=== PATIENT | female | born 1960 | race Caucasian/White ===

== ENCOUNTER 2022-08-20 17:45 | Emergency (ER) | payer BC, SELFPAY ==
[2022-08-20 18:00] VITALS: BP 155/73; PULSE 77; RESP 16; TEMP 37.1; O2SAT 100
--- NOTE | 2022-08-20 18:40 | ED.BACK ---
HPI - Back Pain/Injury General Chief Complaint: Back Pain/Injury Stated Complaint: Right Side/Back Pain Time Seen by Provider: 08/20/22 18:40 Source: patient, RN notes reviewed and old records reviewed Mode of arrival: ambulatory Limitations: no limitations History of Present Illness HPI Narrative: 62-year-old female presents to the [facility] with complaints of right-sided back pain associated with nausea and vomiting. Patient states that she started with right-sided back pain and right upper quadrant pain 3 weeks ago. Patient ate a very simple diet and was drinking water states the pain got better returned 2 days ago. States that she has not been able to eat since the pain returns reports the pain to be right upper quadrant, radiating into her right flank area. Denies fevers. Has tried 1 ibuprofen. Denies any past medical or surgical history. Denies having a primary care provider. Review of Systems Review of Systems: All systems reviewed & are unremarkable except as noted in HPI and below Constitutional: Constitutional: Reports no additional constitutional complaints, Denies chills and Denies fever(s) Eyes: Eyes: Reports no additional eye complaints ENT: Reports system reviewed and no additional complaints, except as documented Cardiovascular: Cardiovascular: Reports no additional cardiovascular complaints Respiratory: Respiratory: Reports no additional respiratory complaints Gastrointestinal: Gastrointestinal: Reports as per HPI, Reports abdominal pain, Reports nausea and Reports vomiting Musculoskeletal: Musculoskeletal: Reports no additional musculoskeletal complaints Integumentary/Breasts: Skin/Breast: Reports system reviewed and no additional complaints, except as docu Neurologic: Reports system reviewed and no additional complaints, except as documented Psychiatric: Psychiatric: Reports no additional psychiatric complaints Allergic/Immunologic: Allergic/Immunologic: Reports no additional allergic/immunologic complaints [facility] Past Medical History Medical History (Updated 08/20/22 @ 19:00 by Olga Lidia Garcia APRN) Patient denies medical problems Surgical History Surgical History (Updated 08/20/22 @ 18:57 by Olga Lidia Garcia APRN) No pertinent past surgical history Social History Social History Smoking status: Never smoker Comments At the time of my signature, I reviewed and agree with the nursing past medical, surgical, social, and family history. There is no relevant family history pertinent to the patient complaint. Exam Const: General: healthy appearing, comfortable, no acute distress, well developed, alert and well nourished Nutritional Appearance: well nourished and obese Orientation/consciousness: patient oriented x3 Limitations: no limitations HENMT: Head: normal to inspection Ears: external ears normal Face/Nose/Sinus: Normal external nose present Face and sinus: normal facial exam Eyes: General: appearance normal, both eyes and all related structures Pupils: Equal, round and reactive pupils present Neck: Neck: normal visual inspection, full ROM, no lymphadenopathy and no meningeal signs Chest: Chest palpation & inspection: normal inspection of the chest Resp: Effort & Inspection: normal respiratory effort and no use of accessory muscles Auscultation: clear to auscultation bilaterally, no crackles, no rales, no rhonchi and no wheezes Cardio: Rate: regular rate Rhythm: regular rhythm GI: Inspection: normal to inspection GI Palp: Yes Soft to palpation, Yes Tenderness to palpation present (GI) (Right upper quadrant), No Guarding due to palpation present (GI), No Rigid due to palpation and No Hernia present Auscultation: normal bowel sounds Back/Spine/Pelvis: Cervical Spine: cervical ROM normal and No Cervical spine tenderness Thoracic/Lumbar Spine: thoracic and lumbar spine normal to inspection and thoraco-lumbar ROM normal Skin
== END 2022-08-20 18:56 | disposition short-term general hospital (02) ==
PROVIDERS: Emergency Provider Nurse Practitioner
DX: R10.11 Right upper quadrant pain (principal); R11.2 Nausea with vomiting, unspecified
CPT/HCPCS: 99212; G0463

== ENCOUNTER 2022-08-20 20:00 | Emergency (ER) | payer BC, SELFPAY ==
--- NOTE | ~2022-08-20 | CT_ITS ---
EXAMINATION: CT abdomen pelvis w con DATE: 08/21/2022 00:18 INDICATION: Right upper quadrant abdominal and flank pain. TECHNIQUE: Computed tomography (CT) of the abdomen and pelvis was performed with 100 mL Omnipaque-350 intravenous contrast. Automated exposure control and iterative reconstruction technique were employe d. The dose-length product was 667.67 mGy-cm. COMPARISON: None FINDINGS: Consolidation in the infrahilar left lower lobe. There are a few additional more nodular opacities in the bilateral lower lobes the largest on the left measuring 2 cm diameter and the largest on the rig ht measuring 1.6 x 1.1 cm. There are at least 6 additional smaller nodules in the right lower lobe an d 2 additional nodules in the visualized left lower lobe. Heart size is normal. No pericardial or ple ural effusion. Dependent densities at the neck of the otherwise normal-appearing gallbladder with no wall thickening or distention to suggest acute cholecystitis. No intra or extrahepatic biliary ductal dilation. Liver, pancreas, spleen, bilateral adrenal glands and kidneys are normal. Bladder, uterus and bilateral adnexa are unremarkable. Bowels including the appendix are normal. No free intraperiton eal gas or fluid. No pathologically enlarged abdominal or pelvic lymphadenopathy. Lytic lesion suspic ious for metastatic disease with pathologic compression fracture with approximately 50% central verte bral body height loss at T10. Prominent osteolysis along the posterior wall with extraosseous extensi on of soft tissue density posteriorly which results in moderate central canal stenosis at this level. No other suspicious lytic or blastic bone lesions identified. IMPRESSION: 1. Lytic bone lesion at T10 with pathologic compression fracture and extra osseous extension into the central canal resulting in moderate central canal stenosis at this level. 2. Left infrahilar consolidation and multiple nodules in the bilateral lower lobes which given the ly tic bone lesion or most concerning for metastatic disease with differential including infection. Woul d recommend dedicated chest CT for more complete evaluation of the lungs and for any potential associ ated lymphadenopathy or additional bone lesions. 3. Nodular densities at the dependent neck of the otherwise normal-appearing gallbladder most likely representing gallstones with differential including sludge balls or less likely polyp/neoplasm. Consi lee ann right upper quadrant ultrasound for further evaluation. No findings to suggest acute cholecystiti s or intra or extra hepatic biliary ductal dilation. 4. No acute intra-abdominal/pelvic process. Reviewed, dictated and finalized at location A. TIC MOULD MAKER IMPRESSION: 1. Lytic bone lesion at T10 with pathologic compression fracture and extra osse ous extension into the central canal resulting in moderate central canal stenos is at this level. 2. Left infrahilar consolidation and multiple nodules in the bilateral lower lo bes which given the lytic bone lesion or most concerning for metastatic disease with differential including infection. Would recommend dedicated chest CT for more complete evaluation of the lungs and for any potential associated lymphade nopathy or additional bone lesions. 3. Nodular densities at the dependent neck of the otherwise normal-appearing ga llbladder most likely representing gallstones with differential including sludg e balls or less likely polyp/neoplasm. Consider right upper quadrant ultrasound for further evaluation. No findings to suggest acute cholecystitis or intra or extra hepatic biliary ductal dilation. 4. No acute intra-abdominal/pelvic process.
[2022-08-20 20:04] VITALS: BP 148/100; PULSE 72; RESP 16; TEMP 37.3; O2SAT 100
[2022-08-20 20:42] LABS: Basophils Percent Auto 0.4 % (0.2-1.2); Eosinophils Percent Auto 0.5 % (0-4.4); Hematocrit 42.2 % (37.0-47.0); Hemoglobin 14.2 g/dL (12.0-15.0); Immature Granulocyte Absolute 0.01 K/mm3 (0.00-0.031); Immature Granulocyte Percent A 0.1 % (0-0.5); Lymphocytes Absolute Auto 1.24 K/mm3 (0.9-3.2); Lymphocytes Percent Auto 15.4 % (18.3-44.2); Mean Corpuscular HGB Conc 33.6 g/dl (32-36); Mean Corpuscular Hemoglobin 29.3 pg (26-34); Mean Platelet Volume 11.3 fl (7.4-10.4); Monocytes Absolute Auto 0.5 K/mm3 (0.1-0.6); Monocytes Percent Auto 6.1 % (2.6-8.5); Neutrophils Absolute Auto 6.2 K/mm3 (1.3-6.7); Neutrophils Percent Auto 77.5 % (45.5-73.1); Platelet Count Result 226 k/mm3 (150-375); Red Blood Count 4.85 M/mm3 (4.2-5.4); Red Cell Distribution Width 11.9 % (11.5-14.5)
[2022-08-20 20:52] LABS: Alanine Aminotransferase 13 U/L (6-35); Albumin Level 4.8 g/dL (3.5-5.1); Alkaline Phosphatase 106 U/L (38-126); Anion Gap 17 mmol/L (8-16); Aspartate Amino Transferase 28 U/L (14-36); Bilirubin,Total 0.8 mg/dL (0.2-1.3); Blood Urea Nitrogen 20 mg/dL (7-17); Calcium 9.4 mg/dL (8.4-10.2); Carbon Dioxide 25 mmol/L (22-30); Chloride 99 mmol/L (98-107); Estimated CRCL calculation 46 ml/min; Estimated Glomerular Filt Rate 46; Glucose 103 mg/dL (65-110); Lipase 134 U/L (23-300); Potassium 3.6 mmol/L (3.4-5.0); Sodium 141 mmol/L (137-145)
[2022-08-20 23:09] LABS: Appearance Urine Clear (Clear); Bilirubin Urine 2+ (Negative); Blood Urine Trace-intact (Negative); Color Urine Yellow (Yellow); Glucose Urine UA Negative (Negative); Ketones Urine 4+ mg/dL (Negative); Leukocyte Esterase Ur Negative LEU/UL (Negative); Nitrate Urine Negative (Negative); Protein Urine 1+ mg/dL (Negative); Specific Grav Ur 1.025 (1.001-1.035); Urobilinogen Urine 0.2 mg/dL (<2.0); pH Urine 5.5 (5.0-9.0)
[2022-08-20 23:15] LABS: Mucus Urine Rare /lpf; RBC Urine 0-2 /hpf (0-2); Squamous Epithelial Cell Urine Occasional /hpf (Few); WBC Urine 0-3 /hpf
[2022-08-20 23:18] LABS: Add Urine Microscopic? YES
[2022-08-20 23:42] VITALS: BP 188/79; PULSE 100; RESP 14; O2SAT 100
[2022-08-20] MEDS: MORPHINE SULFATE (*CRX) 4 MG/ML INJ IV PUSH (23:54)
[2022-08-20] MEDS: ONDANSETRON INJ 4 MG/2 ML VIAL IV PUSH (23:55)
[2022-08-20] MEDS: SODIUM CHLORIDE 0.9% IV 1,000 ML 999 ML IV CONT (23:55)
--- NOTE | 2022-08-21 01:58 | ED.GENADULT ---
HPI - General Adult General Chief complaint: Abdominal Pain Stated complaint: Abdominal pain/flank pain. Time Seen by Provider: 08/20/22 23:31 History of Present Illness HPI narrative: Patient is a 62-year-old female who presents ER with right-sided abdominal pain and flank pain. Ongoing over the last week. Comes in waves. Associated with eating and drinking. Patient concerned she has a gallstone. No fevers or chills or sweats. Patient has been trying to extend out her abdomen to feel better. She does have radiation that goes into her right back. No chest pain or chest pressure. No cough. Related Data Allergies Allergy/AdvReac Type Severity Reaction Status Date / Time No Known Allergies Allergy Verified 08/20/22 20:03 Review of Systems Review of Systems: All systems reviewed & are unremarkable except as noted in HPI and below Constitutional: Constitutional: Denies chills, Denies fatigue and Denies fever(s) ENT: Denies nasal congestion and Denies sore throat Cardiovascular: Cardiovascular: Denies chest pain, Denies rapid heart rate and Denies radiating jaw, neck or arm pain Respiratory: Respiratory: Denies cough and Denies dyspnea Gastrointestinal: Gastrointestinal: Reports abdominal pain, Reports nausea and Denies vomiting Genitourinary: Genitourinary: Denies hematuria, Denies nocturia, Denies dysuria and Reports flank pain Musculoskeletal: Musculoskeletal: Denies back pain, Denies myalgias and Denies arthralgias Neurologic: Denies syncope, Denies focal weakness and Denies numbness PMFSH Past Medical History Medical History (Updated 08/21/22 @ 02:29 by Azael Oviedo MD) Patient denies medical problems Surgical History Surgical History (Updated 08/20/22 @ 18:57 by Olga Lidia Garcia APRN) No pertinent past surgical history Social History Social History Smoking status: Never smoker Exam Narrative: GENERAL: Uncomfortable-appearing, well-nourished, and in no acute distress. HEAD: Normocephalic, atraumatic. ENT: Mucous membranes moist. CHEST: Clear to auscultation. No respiratory distress. HEART: Regular rate and rhythm. Normal peripheral pulses. ABDOMEN: Soft, nontender, nondistended. BACK: No reproducible midline tenderness of the T/L-spine nor is or reproducible tenderness of the paraspinal musculature at these levels. No abrasions or bruises. EXTREMITIES: Normal range of motion. No edema. SKIN: Warm, dry, no rash. NEURO: Alert and oriented x3. PSYCH: Normal mood and affect. Course Course Emergency Course: Patient resting comfortably. Pain is significantly improved with morphine. IV ambulatory without issue. Discussed results of the CT scan in depth. Discussed need for close and prompt follow-up with PCP as well as specialist listed. Patient has no recent traumatic history to cause a vertebral body fracture but nor does she have any memory of a past trauma to her back. She reports she has been lifting her grandchild and had an achy back but no sudden onset pain. She is without any nerve entrapment. Additionally patient is not having fever or cough but will be treated for pneumonia given the nodules in the lung. Patient does not recall her last mammogram and does not do monthly checks of her breasts. She has not seen a PCP as hers has recently retired. Patient also educated on low-fat diet and need for follow-up with general surgery. Patient will be given a prescription for pain and nausea control in the interim. Discussed return precautions. Vital Signs Vital signs: Vital Signs Temperature 99.1 F 08/20/22 20:04 Pulse Rate 72 08/20/22 20:04 Respiratory Rate 16 08/20/22 20:04 Blood Pressure 148/100 H 08/20/22 20:04 Pulse Oximetry 100 08/20/22 20:04 Oxygen Delivery Room Air 08/20/22 20:04 Temperature 99.1 F 08/20/22 20:04 Pulse Rate 100 08/20/22 23:42 Respiratory Rate 14 08/20/22 23:42 Blood Pres
[2022-08-21 03:13] VITALS: BP 164/88; PULSE 88; RESP 18; O2SAT 98
== END 2022-08-21 03:15 | disposition home or self-care (01) ==
PROVIDERS: Emergency Provider Emergency Medicine
DX: K80.20 Calculus of gallbladder without cholecystitis without obstruction (principal); R91.8 Other nonspecific abnormal finding of lung field; M48.54XA Collapsed vertebra, not elsewhere classified, thoracic region, initial encounter for fracture
CPT/HCPCS: 36415; 74177; 80053; 81001; 81025; 83690; 85025; 96361; 96374; 96375; 99284; J2270; J2405; J7030; Q9967

== ENCOUNTER 2022-09-03 08:36 | Outpatient (CLI) | payer BC, SELFPAY ==
--- NOTE | ~2022-09-03 | US_ITS ---
US abdomen limited INDICATION: Right upper quadrant pain PROCEDURE: Realtime right upper abdominal ultrasound. COMPARISON: CT dated 08/21/2022 FINDINGS: The pancreas is not well visualized due to bowel gas. Liver echotexture is increased, cons istent with fatty infiltration. No focal hepatic masses are identified. There is normal directional flow in the portal vein. There are gallstones at the gallbladder neck. Common bile duct measures 4 mm. No sonographic Valladares 's sign. IMPRESSION: 1: Cholelithiasis at the gallbladder neck. 2: Hepatic steatosis. Reviewed, dictated and finalized at location B. ATIONS EXPERT
== END 2022-09-03 08:37 | disposition home or self-care (01) ==
PROVIDERS: PCP Family Medicine; Visit Provider Surgery
DX: K80.20 Calculus of gallbladder without cholecystitis without obstruction (principal); K76.0 Fatty (change of) liver, not elsewhere classified
CPT/HCPCS: 76705

== ENCOUNTER 2022-09-19 12:05 | Outpatient (CLI) | payer BC, SELFPAY ==
--- NOTE | ~2022-09-19 | CT_ITS ---
EXAMINATION: CT diagnostic chest wo con DATE: 09/19/2022 14:11 INDICATION: Pulmonary nodules TECHNIQUE: Computed tomography (CT) of the chest was performed without intravenous contrast. The dose -length product (DLP) was 184.97 mGy-cm. Automated exposure control and iterative reconstruction tech Managed Systemsque were employed. COMPARISON: CT, 08/21/2022 and diagnostic mammogram and ultrasound of the same date FINDINGS: There is a partially imaged mass of the right breast. A right axillary lymph node is upper limits of normal in size. There are multiple (greater than 20) nodules and masses scattered throughou t the lungs. There is an infiltrating left perihilar left lower lobe mass with resulting collapse in the medial aspect of the left lower lobe. There is a small left pleural effusion. The heart size is n ormal. No pneumothorax is identified. There is a lytic lesion with pathologic fracture of the T10 melissa tebral body which extends to the pedicles and lamina and transverse process on the right. There is mo derate central canal stenosis resulting from extraosseous extension of soft tissue from the vertebral body. IMPRESSION: 1. Right breast mass, multiple lung nodules and masses, and pathologic fracture of the T10 vertebral body as detailed above. Constellation of findings is consistent with metastatic breast cancer. Reviewed, dictated and finalized at location A. STRIAL WASTE INSPECTOR IMPRESSION: 1. Right breast mass, multiple lung nodules and masses, and pathologic fracture of the T10 vertebral body as detailed above. Constellation of findings is cons istent with metastatic breast cancer.
--- NOTE | ~2022-09-19 | MMUS_ITS ---
EXAMINATION: MM diagnostic radha BI w arleth, US breast RT limited HISTORY: Palpable mass in the upper outer quadrant of the right breast TECHNIQUE: Craniocaudal, mediolateral, and mediolateral oblique 3-D tomosynthesis images of the lexus ts were performed and synthetic 2-D images were generated. CAD analysis was submitted and interpreted . High resolution limited right breast ultrasound was performed. COMPARISON: No prior mammogram is currently available for comparison. BREAST PARENCHYMAL COMPOSITION: There are scattered areas of fibroglandular density. FINDINGS: MAMMOGRAPHIC FINDINGS: Right breast: There is an approximately 6.1 x 3.5 cm irregular, high density, spiculated mass in the upper outer quadrant of the breast corresponding to the palpable abnormality of concern which demonst rates associated skin and nipple retraction. Left breast: No suspicious mass, calcification, or architectural distortion are identified to suggest malignancy. ULTRASOUND: There is a large, high density, irregular mass at the 9:00 location of the right breast corresponding to the ulcerated palpable abnormality of concern which is difficult to measure but is at least 5.1 x 2.2 cm IMPRESSION: 1. Large right breast mass corresponding to the palpable abnormality of concern. 2. Ultrasound-guided biopsy is recommended. BI-RADS category 5, highly suggestive of malignancy. Reviewed, dictated and finalized at location A. TY DISTRICT CUSTOMS DIRECTOR IMPRESSION: 1. Large right breast mass corresponding to the palpable abnormality of concern . 2. Ultrasound-guided biopsy is recommended. BI-RADS category 5, highly suggestive of malignancy.
== END 2022-09-19 12:06 | disposition home or self-care (01) ==
PROVIDERS: PCP Family Medicine; Visit Provider Family Medicine
DX: N63.10 Unspecified lump in the right breast, unspecified quadrant (principal); R91.8 Other nonspecific abnormal finding of lung field; R92.8 Other abnormal and inconclusive findings on diagnostic imaging of breast
CPT/HCPCS: 71250; 76642; 77062; 77066; G0279

== ENCOUNTER 2022-09-24 11:25 | Outpatient (CLI) | payer BC, SELFPAY ==
--- NOTE | ~2022-09-24 | MM_ITS ---
MM post biopsy invasive RT 09/24/2022 13:49 Indication: Right breast biopsy. Post biopsy mammogram for tissue marker confirmation. Procedure: Digital invasive right mammogram including right CC, exaggerated CC and mediolateral views . Comparison: 09/19/2022 Findings: Procedure was performed by Dr. Rowland. Tissue marker confirmed in the mid outer aspect of the right breast containing within the mass of interest. Impression: 1: Appropriate position of tissue marker post biopsy in the mid outer aspect of the breast Reviewed, dictated and finalized at location B. PHONE SURVEYOR Impression: 1: Appropriate position of tissue marker post biopsy in the mid outer aspect of the breast
--- NOTE | ~2022-09-24 | US_ITS ---
EXAMINATION: US breast biopsy RT w image DATE: 09/24/2022 14:07 INDICATION: Palpable mass of the outer right breast in the 9:00 location Ultrasound-guided core biops y is requested to evaluate for malignancy. TECHNIQUE AND FINDINGS: The risks and potential benefits of the procedure were discussed with the patient including bleeding and infection. A time out was performed. The skin of the right breast was prepared and draped in usua l sterile fashion. Lidocaine was used for superficial anesthesia. Lidocaine with epinephrine was used for deep anesthesia. A vacuum-assisted biopsy needle was advanced through to the outer edge of the region of interest from an inferior approach utilizing sonographic guidance. A total of five tissue core samples were obtain ed through the lesion. A tissue marker clip was then placed at the biopsy site. Hemostasis was achiev ed. A sterile bandage was applied. The patient tolerated procedure well and there was no evidence of immediate complication. The patient was given verbal instructions to return to the Emergency Department in the event of severe breast pa in or rapid breast enlargement. A two view right breast mammogram was obtained to document tissue mar ker clip placement. IMPRESSION: 1. Successful ultrasound-guided vacuum-assisted biopsy of right breast mass with tissue marker placem ent. Reviewed, dictated and finalized at location A. ICAL BUSINESS ANALYST IMPRESSION: 1. Successful ultrasound-guided vacuum-assisted biopsy of right breast mass wit h tissue marker placement.
== END 2022-09-24 11:26 | disposition home or self-care (01) ==
PROVIDERS: PCP Family Medicine; Visit Provider Family Medicine
DX: D05.11 Intraductal carcinoma in situ of right breast (principal)
CPT/HCPCS: 19083; 88305; 88342; 88360; 88365; A4648

== ENCOUNTER 2022-10-09 15:58 | Observation (INO) | payer BC, SELFPAY ==
--- NOTE | ~2022-10-09 | CT_ITS ---
EXAMINATION: CT thoracic lumbar wo con DATE: 10/09/2022 17:56 INDICATION: metastatic disease, worsening back pain . TECHNIQUE: Computed tomography (CT) of the thoracic and lumbar spine was performed without intravenou s contrast. The dose-length product was 1551.63 mGy-cm. COMPARISON: CT chest 09/19/2022, CT abdomen and pelvis 08/21/2022 FINDINGS: THORACIC SPINE: Vertebral body alignment intact. Lytic destruction of the T10 vertebral body, slightly increased heig ht loss, with involvement of the posterior elements and associated soft tissue mass that extends post eriorly into the canal causing severe central canal stenosis. Extension of the lytic process into the T9 vertebral body right posterior aspect of T11. Remaining vertebral body heights preserved. Multile terri mild and moderate degenerative disc disease. Multiple spiculated pulmonary nodules. Left lower lo be consolidation/mass. Small left pleural effusion. LUMBAR SPINE: 5 nonrib-bearing lumbar-type vertebral bodies. Pedicles intact. Normal vertebral body alignment. Vert ebral body heights preserved. Multilevel degenerative disc disease. Normal facets and posterior sever e facet arthropathy. IMPRESSION: 1. Slightly increased vertebral body height loss at T10, otherwise similar extent of the lytic destru ction of T10, extension to T9 and T11, and associated soft tissue mass causing severe central canal s tenosis. 2. No pathologic fracture detected in the lumbar spine. Reviewed, dictated and finalized at location [facility] IMPRESSION: 1. Slightly increased vertebral body height loss at T10, otherwise similar exte nt of the lytic destruction of T10, extension to T9 and T11, and associated sof t tissue mass causing severe central canal stenosis. 2. No pathologic fracture detected in the lumbar spine.
[2022-10-09 16:02] VITALS: BP 180/92; PULSE 91; RESP 20; TEMP 37.1; O2SAT 100
[2022-10-09 16:17] VITALS: BP 172/89; PULSE 95; O2SAT 97
--- NOTE | 2022-10-09 17:22 | ED.BACK ---
HPI - Back Pain/Injury General Chief Complaint: Back Pain/Injury Stated Complaint: unable to stand. lower back pain. Time Seen by Provider: 10/09/22 16:14 History of Present Illness HPI Narrative: Patient is a 62-year-old female with a recent diagnosis of metastatic breast cancer presenting with back pain. Patient states that she has been suffering from lower back pain for the last month and a half. She was found to have a pathologic fracture involving her T10 vertebrae. She saw Dr. Alonso with neurosurgery earlier this month. States that unfortunately her back pain has continued to progress. She was started on Vicodin yesterday which she started taking as prescribed but states that it has not helped the pain. This afternoon, the pain was so severe that she was unable to stand up or move around so she came in for evaluation. She denies numbness or weakness. States that she is scheduled to see a breast specialist at [facility]. No headaches, fevers, chest pain, shortness of breath, abdominal pain, vomiting. Related Data Home Medications Medication Instructions Recorded Confirmed polyethylene glycol 3350 17 gram 17 g PO DAILY 10/09/22 10/09/22 oral powder packet (Miralax) Allergies Allergy/AdvReac Type Severity Reaction Status Date / Time No Known Allergies Allergy Verified 10/09/22 15:59 Review of Systems Review of Systems: All systems reviewed & are unremarkable except as noted in HPI and below PMFSH Past Medical History Medical History Patient denies medical problems Surgical History Surgical History Previous section 1993 Family History Family History Other Cancer Social History Social History Social History: Smoking status: Never smoker Second hand tobacco smoke exposure: No Alcohol intake: former Alcohol use details: Rarely Substance use: never Substance use type: does not use Lack of Transportation: No Lack of Food: Never True Current Housing: I Have Housing Concerned About Future Housing: No Difficulty Paying Gas/Electric Bills: No Difficulty Paying for Meds: No Currently Unemployed: No Education: High School Diploma/GED Difficulty w/ Childcare or Family Care: No Gender identity (if verbalized by the patient): Female Sexual Orientation (if Verbalized by the Patient): Straight or Heterosexual Spiritual care concerns: No Exam Narrative: GENERAL: Uncomfortable appearing, laying very still so as not to exacerbate the pain HEAD: Normocephalic, atraumatic. EYES: PERRLA and EOMI. ENT: Nares clear, no rhinorrhea or epistaxis. Mucous membranes moist. NECK: Supple. CHEST: Clear to auscultation. No respiratory distress. HEART: Regular rate and rhythm. No murmur heard. Normal peripheral pulses. ABDOMEN: Soft, nontender, nondistended, normal active bowel sounds. BACK: Tender with palpation lower thoracic upper lumbar spine EXTREMITIES: Normal range of motion. No edema. SKIN: Warm, dry, no rash. NEURO: No focal deficits. Alert and oriented x3. PSYCH: Normal mood and affect. Course Vital Signs Vital signs: Vital Signs Temperature 98.7 F 10/09/22 16:02 Pulse Rate 91 10/09/22 16:02 Respiratory Rate 20 10/09/22 16:02 Blood Pressure 180/92 H 10/09/22 16:02 Pulse Oximetry 100 10/09/22 16:02 Oxygen Delivery Room Air 10/09/22 16:02 Temperature 97.8 F 10/11/22 13:57 Pulse Rate 78 10/11/22 13:57 Respiratory Rate 18 10/11/22 13:57 Blood Pressure 109/58 L 10/11/22 13:57 Pulse Oximetry 100 10/11/22 13:57 Oxygen Delivery Room Air 10/11/22 14:09 MDM - Back Pain/Injury MDM Narrative Medical decision making narrative: Patient is a 62-year-old female presenting with worsening lowe
[2022-10-09] MEDS: HYDROmorphone HCL INJ (*CRX) 1 MG/ML SYR 0.5 MG IV PUSH ×3 (17:39→23:05)
[2022-10-09 17:51] LABS: Basophils Percent Auto 0.4 % (0.2-1.2); Eosinophils Absolute Auto 0.1 K/mm3 (0-0.3); Eosinophils Percent Auto 0.7 % (0-4.4); Hematocrit 36.7 % (37.0-47.0); Hemoglobin 12.3 g/dL (12.0-15.0); Immature Granulocyte Absolute 0.02 K/mm3 (0.00-0.031); Immature Granulocyte Percent A 0.2 % (0-0.5); Lymphocytes Absolute Auto 1.02 K/mm3 (0.9-3.2); Lymphocytes Percent Auto 12.4 % (18.3-44.2); Mean Corpuscular HGB Conc 33.5 g/dl (32-36); Mean Corpuscular Hemoglobin 29.1 pg (26-34); Monocytes Absolute Auto 0.5 K/mm3 (0.1-0.6); Monocytes Percent Auto 5.5 % (2.6-8.5); Neutrophils Absolute Auto 6.7 K/mm3 (1.3-6.7); Neutrophils Percent Auto 80.8 % (45.5-73.1); Platelet Count Result 220 k/mm3 (150-375); Red Blood Count 4.22 M/mm3 (4.2-5.4); Red Cell Distribution Width 12.4 % (11.5-14.5); White Blood Count 8.3 K/mm3 (4.5-10.0)
[2022-10-09 18:07] LABS: Alanine Aminotransferase 13 U/L (6-35); Albumin Level 4.2 g/dL (3.5-5.1); Alkaline Phosphatase 83 U/L (38-126); Anion Gap 7 mmol/L (8-16); Aspartate Amino Transferase 30 U/L (14-36); Bilirubin,Total 0.7 mg/dL (0.2-1.3); Blood Urea Nitrogen 15 mg/dL (7-17); Calcium 9.2 mg/dL (8.4-10.2); Carbon Dioxide 30 mmol/L (22-30); Chloride 101 mmol/L (98-107); Estimated CRCL calculation 65 ml/min; Estimated Glomerular Filt Rate > 60; Glucose 104 mg/dL (65-110); Potassium 4.4 mmol/L (3.4-5.0); Sodium 138 mmol/L (137-145)
[2022-10-09 18:30] VITALS: BP 156/91; PULSE 100; RESP 18; O2SAT 96
[2022-10-09] MEDS: ONDANSETRON INJ 4 MG/2 ML VIAL IV PUSH ×2 (18:54→23:05)
[2022-10-09 19:39] VITALS: BP 156/83; PULSE 88; RESP 18; O2SAT 100
--- NOTE | 2022-10-09 19:59 | PM.IMHP ---
H&P: HPI History of Present Illness Date/Time: 10/09/22 19:59 Chief Complaint: Back pain Narrative: This is a 62-year-old female with past medical history significant for newly diagnosed right breast cancer with metastatic lesions to the spine at the level of T10 patient comes today to the emergency room due to worsening him back pain worse with movement worse with ambulation has not been able to control the pain with oral medications at home. Patient denies any urinary retention, fecal incontinence, saddle anesthesia, described the pain as located in the middle of her back and radiating bilaterally down to her hips worse with movement unable to ambulate had some nausea but no vomiting denies any fevers, chills, rigors. A CT of the spine was reported as: FINDINGS: THORACIC SPINE: Vertebral body alignment intact. Lytic destruction of the T10 vertebral body, slightly increased height loss, with involvement of the posterior elements and associated soft tissue mass that extends posteriorly into the canal causing severe central canal stenosis. Extension of the lytic process into the T9 vertebral body right posterior aspect of T11. Remaining vertebral body heights preserved. Multilevel mild and moderate degenerative disc disease. Multiple spiculated pulmonary nodules. Left lower lobe consolidation/mass. Small left pleural effusion. LUMBAR SPINE: 5 nonrib-bearing lumbar-type vertebral bodies. Pedicles intact. Normal vertebral body alignment. Vertebral body heights preserved. Multilevel degenerative disc disease. Normal facets and posterior severe facet arthropathy. IMPRESSION: 1. Slightly increased vertebral body height loss at T10, otherwise similar extent of the lytic destruction of T10, extension to T9 and T11, and associated soft tissue mass causing severe central canal stenosis. 2. No pathologic fracture detected in the lumbar spine. Review of Systems Review of Systems: Back pain Constitutional: Constitutional: Denies chills, Denies fatigue, Denies fever(s), Denies lethargy, Denies malaise, Denies night sweats, Denies poor appetite and Denies weakness Eyes: Eyes: Denies change in vision ENT: Denies dysphagia, Denies vertigo, Denies dizziness and Denies odynophagia Cardiovascular: Cardiovascular: Denies chest pain, Denies leg edema, Denies lightheadedness and Denies radiating jaw, neck or arm pain Respiratory: Respiratory: Denies chest congestion, Denies cough, Denies excessive phlegm production, Denies pain on inspiration, Denies dyspnea and Denies dyspnea on exertion Gastrointestinal: Gastrointestinal: Denies abdominal pain, Denies dyspepsia, Denies heartburn, Denies diarrhea, Denies nausea and Denies vomiting Genitourinary: Genitourinary: Reports no additional female genitourinary complaints, Reports as per HPI and Denies dysuria Musculoskeletal: Musculoskeletal: Reports back pain (The level of T10), Denies muscle weakness, Denies numbness, Reports radiating pain into limb (Bilateral lower extremity) and Denies tingling Integumentary/Breasts: Skin/Breast: Reports wounds (Right breast right upper outer quadrant) Neurologic: Denies vertigo, Denies dizziness, Denies focal weakness, Denies numbness, Reports radicular pain, Denies Sensory deficit (Neuro), Denies tingling, Denies paresthesias and Denies weakness Psychiatric: Psychiatric: Reports no additional psychiatric complaints and Reports as per HPI Endocrine: Endocrine: Denies cold intolerance, Denies flushing, Denies heat intolerance, Denies polyphagia, Denies polydipsia and Denies palpitations Hematologic/Lymphatic: Hematologic/Lymphatic: Reports no additional hematologic/lymphatic complaints and Reports as per HPI Allergic/Immunologic: Allergic/Immunologic: Reports no additional allergic/immunologic complaints and Reports as per HPI PMFSH Past Medical History Medical History Patient denies medical problems Surgical History
[2022-10-09 21:16] LABS: Influenza A QL RT-PCR Negative (Negative); Influenza B QL RT-PCR Negative (Negative); RSV RNA, RT-PCR Negative (Negative); SARS-CoV-2 RNA PCR Negative
[2022-10-09 21:58] VITALS: BP 160/93; PULSE 109; RESP 18; O2SAT 97
[2022-10-09 22:00] VITALS: BP 149/79; PULSE 102; RESP 18; TEMP 36.6; O2SAT 97; BMI 31.8
--- NOTE | 2022-10-09 22:40 | ADMGEN ---
This patient, Negar Cline, was admitted to Medical Room 243-01. Patient/family oriented to hospital policies and general routines including ID bracelet, bed and alarms, visiting hours, pain management, procedures, bathroom and other care routines, personal items, smoking policy, room service/diet, and visiting hours. Information on how to activate the Rapid Response Team has been discussed. Patient/Family are encouraged to report perceived risks to care and to ask questions if they do not understand what they are told or what they should do.
[2022-10-10] MEDS: HYDROmorphone HCL INJ (*CRX) 1 MG/ML SYR IV PUSH ×3 (02:19→14:51)
[2022-10-10 05:39] VITALS: BP 138/76; PULSE 97; RESP 18; TEMP 36.6; O2SAT 94
--- NOTE | 2022-10-10 07:45 | PM.IMPN ---
Progress Note: A&P Assessment and Plan (1) Spinal stenosis: Code(s): M48.00 - Spinal stenosis, site unspecified Status: Acute Assessment and Plan: CT of the spine indicated severe spine stenosis Neurosurgery consulted Await recommendations (2) T10 vertebral fracture: Qualifiers: Encounter type: subsequent encounter Fracture healing: with delayed healing Fracture morphology: burst- unstable Fracture type: closed Qualified Code(s): S22.072G - Unstable burst fracture of T9-T10 vertebra, subsequent encounter for fracture with delayed healing Code(s): S22.079A - Unspecified fracture of T9-T10 vertebra, initial encounter for closed fracture Status: Acute Assessment and Plan: Pain management Neurosurgery consulted Consider TLSO brace PT/OT (3) Acute pain: Code(s): R52 - Pain, unspecified Status: Acute Assessment and Plan: Related to spinal cord stenosis, and lytic destruction of the spinal cord Started fentanyl patch 100 mcg q.72 hours Dilaudid for breakthrough pain Add home norco, for hopeful sustained relief Started tizanidine for spasms Neurosurgery consult (4) Breast cancer metastasized to bone: Code(s): C50.919 - Malignant neoplasm of unspecified site of unspecified female breast; C79.51 - Secondary malignant neoplasm of bone Status: Acute Assessment and Plan: Patient will follow-up in outpatient setting with Oncology Hematology Consider oncology consult if indicated pathology from 09/24/22 HER2 positive amplification (5) Breast cancer metastasized to lung: Qualifiers: Laterality: right Qualified Code(s): C50.911 - Malignant neoplasm of unspecified site of right female breast; C78.00 - Secondary malignant neoplasm of unspecified lung Code(s): C50.919 - Malignant neoplasm of unspecified site of unspecified female breast; C78.00 - Secondary malignant neoplasm of unspecified lung Status: Acute Assessment and Plan: As above Biopsy of the breast complete consult oncology for recommendations of the lung neoplasms Hold anticoagulation (6) Breast wound: Code(s): S21.009A - Unspecified open wound of unspecified breast, initial encounter Status: Acute Assessment and Plan: Local care Wound care consult treatment per recommendation of wound care (7) Constipation due to opioid therapy: Code(s): K59.03 - Drug induced constipation; T40.2X5A - Adverse effect of other opioids, initial encounter Status: Acute Assessment and Plan: Continue home laxatives added senna, miralax Scheduled, and PRN suppository Encourage hydration and activity Time Spent With Patient Time with patient: Greater than 35 minutes Subjective Date/time seen: 10/10/22 07:45 Interval history: 10/10/22744 patient seems to be doing okay today. She did state that her pain is a 10/10 when it shoots through her back. She did state that she felt like the Dilaudid was working. Discussed with her the pain regimen that she is currently on including the fentanyl patch, [place] and will also add tizanidine. Did explain to her that she needs to try to not use the Dilaudid only use for breakthrough pain as she cannot go home with that. She did state that getting up does cause her to have some shortness of breath but she stated that was from due to the pain. She currently denies any other chest pain, vomiting, diarrhea, dizziness or lightheadedness. She does state that she is little weak shaky however she stated that is more to the pain as well. She also states that she does have issues with constipation however she states that her last BM was yesterday. Nausea is also present however has been off and on. Will consult Oncology for recommendations on biopsy of the lung if needed. Wound Ca
--- NOTE | 2022-10-10 07:45 | P.PNIM_ITS ---
Progress Note: A&P Assessment and Plan (1) Spinal stenosis: Code(s): M48.00 - Spinal stenosis, site unspecified Status: Acute Assessment and Plan: * CT of the spine indicated severe spine stenosis * Neurosurgery consulted * Await recommendations (2) T10 vertebral fracture: Qualifiers: Encounter type: subsequent encounter Fracture healing: with delayed healing Fracture morphology: burst- unstable Fracture type: closed Qualified Code(s): S22.072G - Unstable burst fracture of T9-T10 vertebra, subsequent encounter for fracture with delayed healing Code(s): S22.079A - Unspecified fracture of T9-T10 vertebra, initial encounter for closed fracture Status: Acute Assessment and Plan: * Pain management * Neurosurgery consulted * Consider TLSO brace PT/OT (3) Acute pain: Code(s): R52 - Pain, unspecified Status: Acute Assessment and Plan: * Related to spinal cord stenosis, and lytic destruction of the spinal cord * Started fentanyl patch 100 mcg q.72 hours * Dilaudid for breakthrough pain * Add home norco, for hopeful sustained relief * Started tizanidine for spasms * Neurosurgery consult (4) Breast cancer metastasized to bone: Code(s): C50.919 - Malignant neoplasm of unspecified site of unspecified female breast; C79.51 - Secondary malignant neoplasm of bone Status: Acute Assessment and Plan: * Patient will follow-up in outpatient setting with Oncology Hematology * Consider oncology consult if indicated * pathology from 09/24/22 HER2 positive amplification (5) Breast cancer metastasized to lung: Qualifiers: Laterality: right Qualified Code(s): C50.911 - Malignant neoplasm of unspecified site of right female breast; C78.00 - Secondary malignant neoplasm of unspecified lung Code(s): C50.919 - Malignant neoplasm of unspecified site of unspecified female breast; C78.00 - Secondary malignant neoplasm of unspecified lung Status: Acute Assessment and Plan: * As above * Biopsy of the breast complete * consult oncology for recommendations of the lung neoplasms * Hold anticoagulation (6) Breast wound: Code(s): S21.009A - Unspecified open wound of unspecified breast, initial encounter Status: Acute Assessment and Plan: * Local care * Wound care consult * treatment per recommendation of wound care (7) Constipation due to opioid therapy: Code(s): K59.03 - Drug induced constipation; T40.2X5A - Adverse effect of other opioids, initial encounter Status: Acute Assessment and Plan: * Continue home laxatives * added senna, miralax Scheduled, and PRN suppository * Encourage hydration and activity Time Spent With Patient Time with patient: Greater than 35 minutes Subjective Date/time seen: 10/10/22 07:45 Interval history: 10/10/22744 patient seems to be doing okay today. She did state that her pain is a 10/10 when it shoots through her back. She did state that she felt like the Dilaudid was working. Discussed with her the pain regimen that she is currently on including the fentanyl patch, [place] and will also add tizanidine. Did explain to her that she needs to try to not use the Dilaudid only use for breakthrough pain as she cannot go home w
[2022-10-10] MEDS: ONDANSETRON INJ 4 MG/2 ML VIAL IV PUSH ×2 (07:48→20:15)
[2022-10-10] MEDS: SILVER NITRATE (*SP) STICK 1 EACH TOPICAL (09:35)
[2022-10-10] MEDS: SILVERGEL (ELTA) 45 ML 1 APPLIC TOPICAL (09:36)
[2022-10-10] MEDS: TIZANIDINE HCL 2 MG TABLET PO ×2 (09:37→21:36)
[2022-10-10] MEDS: SENNA/DOCUSATE SODIUM TABLET 1 TAB PO (09:39)
[2022-10-10] MEDS: polyethylene glycoL 3350 17 GM POWD.PACK PO (09:39)
[2022-10-10] MEDS: PANTOPRAZOLE 40 MG TABLET PO (09:39)
--- NOTE | 2022-10-10 10:35 | WPDNEUROSGCN ---
Assessment and Plan Assessment and plan (1) Spine metastasis: Code(s): C79.51 - Secondary malignant neoplasm of bone Status: Acute (2) Breast cancer metastasized to bone: Code(s): C50.919 - Malignant neoplasm of unspecified site of unspecified female breast; C79.51 - Secondary malignant neoplasm of bone Status: Acute Plan Ms. Cline is a 62-year-old female who was recently diagnosed with breast cancer who was admitted for uncontrolled pain from a T10 metastasis. She has no other neurologic symptoms at this time. CT thoracic spine shows a large metastasis at T10 causing central canal stenosis. She did have a recent MRI thoracic on September 18 which shows spinal cord compression; however, she has no signs or symptoms of cord compression at this time. I would recommend inpatient Oncology evaluation to expedite her treatment. I am concerned that she could develop symptoms from spinal cord compression if her treatment is not started soon. I have suggested wearing a brace in the interim to see whether this would help alleviate her pain. We could try a [place] brace. I will also update Dr. Alonso as he is already following her as an outpatient. Plan: -Recommend Oncology evaluation as inpatient -Consider Yaakov brace for comfort Review of Systems Review of Systems: 14-point ROS was conducted and was negative aside from above PMFSH Past Medical History Medical History Patient denies medical problems Surgical History Surgical History Previous section 1993 Family History Family History Other Cancer Social History Social History Social History: Smoking status: Never smoker Second hand tobacco smoke exposure: No Alcohol intake: former Alcohol use details: Rarely Substance use: never Substance use type: does not use Lack of Transportation: No Lack of Food: Never True Current Housing: I Have Housing Concerned About Future Housing: No Difficulty Paying Gas/Electric Bills: No Difficulty Paying for Meds: No Currently Unemployed: No Education: High School Diploma/GED Difficulty w/ Childcare or Family Care: No Gender identity (if verbalized by the patient): Female Sexual Orientation (if Verbalized by the Patient): Straight or Heterosexual Spiritual care concerns: No Meds Home Medications and Allergies Home Medications Medication Instructions Recorded Confirmed Type pantoprazole 40 mg tablet,delayed 40 mg PO QAM #90 tabs 10/03/22 10/09/22 Rx release hydrocodone 5 mg-acetaminophen 325 1 tablet PO Q6H PRN pain #60 tabs 10/08/22 10/09/22 Rx mg tablet polyethylene glycol 3350 17 gram 17 g PO DAILY 10/09/22 10/09/22 History oral powder packet (Miralax) Allergies Allergy/AdvReac Type Severity Reaction Status Date / Time No Known Allergies Allergy Verified 10/09/22 15:59 Vital Signs Vital Signs - 24 hr 10/09/22 16:02 10/09/22 16:17 10/09/22 18:30 Temperature 37.1 C Pulse Rate 91 95 100 Respiratory Rate 20 18 Blood Pressure 180/92 H 172/89 H 156/91 H Pulse Oximetry 100 97 96 Oxygen Delivery Room Air 10/09/22 19:39 10/09/22 21:58 10/09/22 22:00 Temperature 36.6 C Pulse Rate 88 109 H 102 H Respiratory Rate 18 18 18 Blood Pressure 156/83 H 160/93 H 149/79 H Pulse Oximetry 100 97 97 Oxygen Delivery 10/09/22 23:00 10/10/22 05:39 Temperature 36.6 C Pulse Rate 97 Respiratory Rate 18 Blood Pressure 138/76 Pulse Oximetry 94 Oxygen Delivery Room Air Exam Narrative: Mild tenderness to palpation on back around T10 region No sensory level Unless otherwise stated above, the patient's physical exam is as follows: General: -Well developed and well nourished. No acute
[2022-10-10 14:00] VITALS: BP 123/73; PULSE 88; RESP 18; TEMP 36.7; O2SAT 95
--- NOTE | 2022-10-10 18:45 | PDONCCONNOTE ---
Recommendations will follow if surgery is not feasible Radation Oncology should be consulted Impression Treatment of her spinal lesion is a priority- If surgical decompression and stabilization is feasible this would be preferred- Systemic therapy is unlikely to affect a rapid response and pain control and prevention of neurologic deterioration is important. This should be followed by Radiation the the area with Oncologic assessment for systemic therapy. [facility] - Date/Time Seen 10/10/22 18:45 - History of Present Illness Pt with recently diagnosed Breast Cancer with a ulcerated lesion in her Rt Breast and bone metastases - I do not know details of the reults of her biopsy. She has a T 10 lesion causing severe pain and invading the spinal canal - at present without motor or sensory deficit. She is scheduled to see an Oncologist to discuss options for systemic therapy which is dependent on results of her biopsy. - Medical History Medical History (Last Reviewed 10/09/22 @ 17:31 by Tiffanie Cooper MD) Patient denies medical problems - Surgical History Surgical History (Last Reviewed 10/09/22 @ 17:31 by Tiffanie Cooper MD) Previous section 1992 - Family History Family History (Last Reviewed 10/09/22 @ 17:31 by Tiffanie Cooper MD) Other Cancer - Social History Social History (Last Reviewed 10/09/22 @ 17:31 by Tiffanie Cooper MD) Gender Identity: Gender identity (if verbalized by the patient): Female Sexual Orientation: Sexual Orientation (if Verbalized by the Patient): Straight or Heterosexual Alcohol Use: Alcohol intake: former Alcohol use details: Rarely Substance Use: Substance use: never Substance use type: does not use Others: Spiritual care concerns: No Smoking Status: Smoking status: Never smoker Second hand tobacco smoke exposure: No Social Determinants of Health: Has the Lack of Transportation Kept You From Medical Appointments or From Getting Medications?: No Within the Past 12 Months, Were You Worried Whether Your Food Would Run Out Before You Got Money to Buy More?: Never True What is Your Housing Situation Today?: I Have Housing Are You Worried That in the Next 2 Months, You May Not Have Your Own Housing to Live In?: No Do You Have Trouble Paying Your Heating Or Electricity Bill?: No Do You Have Trouble Paying For Medicines?: No Are You Currently Unemployed and Looking for Work?: No Highest Level of Education Completed: High School Diploma/GED Do You Have Trouble With Childcare or the Care of a Family Member?: No - Medications Active Medications Generic Name Dose Route Start Last Admin Trade Name Freq PRN Reason Stop Dose Admin Hydrocodone Bitart/Acetaminophen 1 tab 10/10/22 06:49 Hydrocodone/Acetaminophen (*Crx) 5-325 Mg Tablet PO Q6H PRN pain 4-6 Bisacodyl 10 mg 10/10/22 06:50 Bisacodyl 10 Mg Suppository RECTAL QAM PRN Constipation >48 hours Fentanyl 100 mcg 10/10/22 09:00 10/10/22 09:36 Fentanyl (*Crx) 100 Mcg Patch TRANSDERM 100 mcg Q72HR JANES Administration Hydromorphone HCl 1 mg 10/10/22 01:38 10/10/22 14:51 Hydromorphone Hcl Inj (*Crx) 1 Mg/Ml Syr IV PUSH 1 mg Q3H PRN Administration Pain Rated 7-10 Ondansetron HCl 4 mg 10/09/22 20:00 10/10/22 07:48 Ondansetron Inj 4 Mg/2 Ml Vial IV PUSH 4 mg Q4H PRN Administration Nausea Pantoprazole Sodium 40 mg 10/10/22 09:00 10/10/22 09:39 Pantoprazole 40 Mg Tablet PO 40 mg QAM JANES Administration Polyethylene Glycol 17 gm 10/10/22 09:00 10/10/22 09:39 Polyethylene Glycol 3350 17 Gm Powd.Pack PO 17 gm QAM JANES Administration Senna/Docusate Sodium 1 tab 10/10/22 09:00 10/10/22 09:39 Senna/Docusate Sodium Tablet PO 1 tab DAILY JANES Administration Silver Nitrate 1 applic 10/10/22 09:00 10/10/22 09:36 Silvergel (Elta
[2022-10-10 20:04] VITALS: BP 117/78; PULSE 84; RESP 20; TEMP 36.7; O2SAT 96
[2022-10-10] MEDS: HYDROcodone/acetaminophen (*CRX) 5-325 MG TABLET 1 TAB PO (20:14)
[2022-10-11 04:45] VITALS: BP 110/63; PULSE 70; RESP 20; TEMP 36; O2SAT 100
[2022-10-11 05:50] LABS: Basophils Percent Auto 0.1 % (0.2-1.2); Hematocrit 32.4 % (37.0-47.0); Hemoglobin 10.8 g/dL (12.0-15.0); Immature Granulocyte Absolute 0.05 K/mm3 (0.00-0.031); Immature Granulocyte Percent A 0.5 % (0-0.5); Lymphocytes Absolute Auto 1.03 K/mm3 (0.9-3.2); Lymphocytes Percent Auto 9.5 % (18.3-44.2); Mean Corpuscular HGB Conc 33.3 g/dl (32-36); Mean Corpuscular Hemoglobin 29.2 pg (26-34); Mean Corpuscular Volume 87.6 fl (80-100); Mean Platelet Volume 11.4 fl (7.4-10.4); Monocytes Absolute Auto 0.8 K/mm3 (0.1-0.6); Monocytes Percent Auto 7.1 % (2.6-8.5); Neutrophils Absolute Auto 8.9 K/mm3 (1.3-6.7); Neutrophils Percent Auto 82.8 % (45.5-73.1); Platelet Count Result 237 k/mm3 (150-375); Red Cell Distribution Width 12.3 % (11.5-14.5); White Blood Count 10.8 K/mm3 (4.5-10.0)
[2022-10-11] MEDS: TIZANIDINE HCL 2 MG TABLET PO (06:13)
[2022-10-11 06:20] LABS: Alanine Aminotransferase 12 U/L (6-35); Albumin Level 3.8 g/dL (3.5-5.1); Alkaline Phosphatase 70 U/L (38-126); Anion Gap 5 mmol/L (8-16); Aspartate Amino Transferase 24 U/L (14-36); Bilirubin,Total 0.4 mg/dL (0.2-1.3); Blood Urea Nitrogen 26 mg/dL (7-17); Calcium 8.9 mg/dL (8.4-10.2); Carbon Dioxide 31 mmol/L (22-30); Chloride 97 mmol/L (98-107); Estimated CRCL calculation 49 ml/min; Estimated Glomerular Filt Rate 50; Glucose 118 mg/dL (65-110); Magnesium 1.9 mg/dL (1.6-2.3); Potassium 4.1 mmol/L (3.4-5.0); Sodium 133 mmol/L (137-145)
[2022-10-11] MEDS: polyethylene glycoL 3350 17 GM POWD.PACK PO (09:38)
[2022-10-11] MEDS: PANTOPRAZOLE 40 MG TABLET PO (09:38)
[2022-10-11] MEDS: SENNA/DOCUSATE SODIUM TABLET 1 TAB PO (09:38)
--- NOTE | 2022-10-11 10:15 | P.DS_ITS ---
DS: Admitting Diagnosis Discharge Date 10/11/22 1015 Admitting Diagnosis Acute pain, spinal stenosis, vertebral fracture, breast cancer with metastasis to the lung and spine DS: Discharge Diagnosis Discharge Diagnosis (1) Spinal stenosis: Code(s): M48.00 - Spinal stenosis, site unspecified Status: Acute Assessment and Plan: * CT of the spine indicated severe spine stenosis * Neurosurgery consulted * Await recommendations (2) T10 vertebral fracture: Qualifiers: Encounter type: subsequent encounter Fracture healing: with delayed healing Fracture morphology: burst- unstable Fracture type: closed Qualified Code(s): S22.072G - Unstable burst fracture of T9-T10 vertebra, subsequent encounter for fracture with delayed healing Code(s): S22.079A - Unspecified fracture of T9-T10 vertebra, initial encounter for closed fracture Status: Acute Assessment and Plan: * Pain management * Neurosurgery consulted * Consider TLSO brace PT/OT (3) Acute pain: Code(s): R52 - Pain, unspecified Status: Acute Assessment and Plan: * Related to spinal cord stenosis, and lytic destruction of the spinal cord * Started fentanyl patch 100 mcg q.72 hours * Dilaudid for breakthrough pain * Add home norco, for hopeful sustained relief * Started tizanidine for spasms * Neurosurgery consult (4) Breast cancer metastasized to bone: Code(s): C50.919 - Malignant neoplasm of unspecified site of unspecified female breast; C79.51 - Secondary malignant neoplasm of bone Status: Acute Assessment and Plan: * Patient will follow-up in outpatient setting with Oncology Hematology * Consider oncology consult if indicated * pathology from 09/24/22 HER2 positive amplification (5) Breast cancer metastasized to lung: Qualifiers: Laterality: right Qualified Code(s): C50.911 - Malignant neoplasm of unspecified site of right female breast; C78.00 - Secondary malignant neoplasm of unspecified lung Code(s): C50.919 - Malignant neoplasm of unspecified site of unspecified female breast; C78.00 - Secondary malignant neoplasm of unspecified lung Status: Acute Assessment and Plan: * As above * Biopsy of the breast complete * consult oncology for recommendations of the lung neoplasms * Hold anticoagulation (6) Breast wound: Code(s): S21.009A - Unspecified open wound of unspecified breast, initial encounter Status: Acute Assessment and Plan: * Local care * Wound care consult * treatment per recommendation of wound care (7) Constipation due to opioid therapy: Code(s): K59.03 - Drug induced constipation; T40.2X5A - Adverse effect of other opioids, initial encounter Status: Acute Assessment and Plan: * Continue home laxatives * added senna, miralax Scheduled, and PRN suppository * Encourage hydration and activity DS: Summary Hospital Course Hospital Course: Patient is 60-year-old female with a past medical history of breast cancer with metastatic lesions presented the ED with worsening and uncontrolled pain. The CT spine indicated severe spinal stenosis along with lytic destruction of T9-T10 T11. Oncology was consulted who is recommending treatment and follow-up with neurosurgery. Neurosur
--- NOTE | 2022-10-11 10:15 | PM.DS ---
DS: Admitting Diagnosis Discharge Date 10/11/22 1015 Admitting Diagnosis Acute pain, spinal stenosis, vertebral fracture, breast cancer with metastasis to the lung and spine DS: Discharge Diagnosis Discharge Diagnosis (1) Spinal stenosis: Code(s): M48.00 - Spinal stenosis, site unspecified Status: Acute Assessment and Plan: CT of the spine indicated severe spine stenosis Neurosurgery consulted Await recommendations (2) T10 vertebral fracture: Qualifiers: Encounter type: subsequent encounter Fracture healing: with delayed healing Fracture morphology: burst- unstable Fracture type: closed Qualified Code(s): S22.072G - Unstable burst fracture of T9-T10 vertebra, subsequent encounter for fracture with delayed healing Code(s): S22.079A - Unspecified fracture of T9-T10 vertebra, initial encounter for closed fracture Status: Acute Assessment and Plan: Pain management Neurosurgery consulted Consider TLSO brace PT/OT (3) Acute pain: Code(s): R52 - Pain, unspecified Status: Acute Assessment and Plan: Related to spinal cord stenosis, and lytic destruction of the spinal cord Started fentanyl patch 100 mcg q.72 hours Dilaudid for breakthrough pain Add home norco, for hopeful sustained relief Started tizanidine for spasms Neurosurgery consult (4) Breast cancer metastasized to bone: Code(s): C50.919 - Malignant neoplasm of unspecified site of unspecified female breast; C79.51 - Secondary malignant neoplasm of bone Status: Acute Assessment and Plan: Patient will follow-up in outpatient setting with Oncology Hematology Consider oncology consult if indicated pathology from 09/24/22 HER2 positive amplification (5) Breast cancer metastasized to lung: Qualifiers: Laterality: right Qualified Code(s): C50.911 - Malignant neoplasm of unspecified site of right female breast; C78.00 - Secondary malignant neoplasm of unspecified lung Code(s): C50.919 - Malignant neoplasm of unspecified site of unspecified female breast; C78.00 - Secondary malignant neoplasm of unspecified lung Status: Acute Assessment and Plan: As above Biopsy of the breast complete consult oncology for recommendations of the lung neoplasms Hold anticoagulation (6) Breast wound: Code(s): S21.009A - Unspecified open wound of unspecified breast, initial encounter Status: Acute Assessment and Plan: Local care Wound care consult treatment per recommendation of wound care (7) Constipation due to opioid therapy: Code(s): K59.03 - Drug induced constipation; T40.2X5A - Adverse effect of other opioids, initial encounter Status: Acute Assessment and Plan: Continue home laxatives added senna, miralax Scheduled, and PRN suppository Encourage hydration and activity DS: Summary Hospital Course Hospital Course: Patient is 60-year-old female with a past medical history of breast cancer with metastatic lesions presented the ED with worsening and uncontrolled pain. The CT spine indicated severe spinal stenosis along with lytic destruction of T9-T10 T11. Oncology was consulted who is recommending treatment and follow-up with neurosurgery. Neurosurgery is recommending that the patient to start treatment for her newly diagnosed cancer. A Campbell brace was also recommended and has been obtained. Pain has been controlled with fentanyl patch, oral [place] and tizanidine. Currently patient is comfortable and is stable for discharge at this time. Labs and vital signs remained stable. Patient denies any chest pain, shortness a breath, nausea, vomiting, diarrhea, constipation, weakness fatigue. Patient does have follow-up appointment with Oncology next week and will need to follow up with Neurosurgery shortly thereafter.
[2022-10-11 13:57] VITALS: BP 109/58; PULSE 78; RESP 18; TEMP 36.6; O2SAT 100
[2022-10-11] MEDS: HYDROcodone/acetaminophen (*CRX) 5-325 MG TABLET 1 TAB PO (14:45)
--- NOTE | 2022-10-11 16:49 | PC.NURSE ---
pt refused dressing change today, she is going to shower at home and wishes to change dressing at that time, reviewed instructions with pt and her friends that will be staying with her, supplies sent
== END 2022-10-11 17:03 | disposition home or self-care (01) ==
LOC: ANHED 20:09 → ANH2MED 10-10 04:53
PROVIDERS: Nurse Practitioner; Admitting Provider Internal Medicine; Emergency Provider Emergency Medicine; PCP Family Medicine; Visit Provider Chiropractor
DX: M48.00 Spinal stenosis, site unspecified (principal); S22.072 Unstable burst fracture of T9-T10 vertebra; C79.51 Secondary malignant neoplasm of bone; C50.911 Malignant neoplasm of unspecified site of right female breast; C78.00 Secondary malignant neoplasm of unspecified lung; S21.009A Unspecified open wound of unspecified breast, initial encounter; K59.03 Drug induced constipation; M54.9 Dorsalgia, unspecified; Z20.822 Contact with and (suspected) exposure to COVID-19; F10.90 Alcohol use, unspecified, uncomplicated; T40.2X5A Adverse effect of other opioids, initial encounter; Z87.891 Personal history of nicotine dependence; Z79.899 Other long term (current) drug therapy
CPT/HCPCS: 36415; 72128; 72131; 80053; 83735; 85025; 87637; 96374; 96375; 96376; 97161; 99285; A9270; G0378; J1100; J1170; J2405

== ENCOUNTER 2022-11-15 22:48 | Inpatient (IN) | payer BC, SELFPAY ==
--- NOTE | ~2022-11-15 | CT_ITS ---
EXAMINATION: CT abdomen pelvis w con INDICATION: Epigastric abdominal pain, history of metastatic breast cancer TECHNIQUE: Computed tomographic images of the abdomen and pelvis were obtained after the administrati on of 100 cc of Omnipaque 350 intravenous contrast. The dose-length product (DLP) was 856.83 mGy-cm. Automated exposure control and iterative reconstruction technique were employed. COMPARISON: 08/21/2022 FINDINGS: There is a moderate-sized left pleural effusion. There is a small right pleural effusion. T here are lung nodules in the visualized lower lobes and right middle lobe. The heart size is normal. Stones are present in the nondistended gallbladder. The liver, spleen, pancreas, and adrenal glands a re normal. The kidneys are unremarkable. No pathologically enlarged abdominal or pelvic lymph nodes a re identified. No free intraperitoneal gas or evidence of bowel obstruction. The appendix is normal. There is a Hernandez catheter in the bladder. There has been interval posterior fusion of the thoracolumb ar spine with a vertebral body device now present at the site of the previously identified pathologic T10 fracture. IMPRESSION: 1. No CT correlate for the patient's symptoms. 2. Moderate-sized left and small right pleural effusions. 3. Nodules in the visualized lung bases, likely metastatic disease. 4. Cholelithiasis without evidence of cholecystitis. Reviewed, dictated and finalized at location A. ICAL/MOBILE WATCH OFFICER
--- NOTE | ~2022-11-15 | US_ITS ---
EXAMINATION: US venous doppler [facility] DATE: 11/17/2022 10:49 INDICATION: Bilateral lower limb edema TECHNIQUE: Duffy scale images without and with compression and Doppler images of the bilateral lower e xtremity veins were obtained. COMPARISON: None FINDINGS: There is thrombosis of the right posterior tibial vein. The right common femoral vein, profunda femor al vein, femoral vein, popliteal vein, peroneal trunk, and greater saphenous vein are patent. The left common femoral vein, profunda femoral vein, femoral vein, popliteal vein, peroneal trunk, po sterior tibial veins, and greater saphenous vein are patent. IMPRESSION: 1. Thrombosis of the right posterior tibial vein. Otherwise, no evidence of deep venous thrombosis. T hese findings were discussed with TIRSO Blankenship on [facility] at 1425 hours on 11/17/2022. Reviewed, dictated and finalized at location A. RMATICA MDM DEVELOPER IMPRESSION: 1. Thrombosis of the right posterior tibial vein. Otherwise, no evidence of geovanni p venous thrombosis. These findings were discussed with TIRSO Blankenship on [facility] at 1425 hours on 11/17/2022.
[2022-11-15 22:56] VITALS: BP 198/86; PULSE 101; RESP 18; TEMP 36.8; O2SAT 100
--- NOTE | 2022-11-15 23:41 | ED.GENADULT ---
HPI - General Adult General Chief complaint: Nausea/Vomiting/Diarrhea <Chip Villalta MD - Last Filed: 11/16/22 18:54> Stated complaint: N/V-unable to eat X2 days <Chip Villalta MD - Last Filed: 11/16/22 18:54> Time Seen by Provider: 11/15/22 23:30 <Chip Villalta MD - Last Filed: 11/16/22 18:54> History of Present Illness HPI narrative: 62-year-old female presents to the emergency department for nausea vomiting and abdominal pain. Patient is currently being treated at [facility] [place] for metastatic breast cancer. Patient did just start radiation and hormone therapy this week. Patient states since this morning she has had decreased p.o. intake due to persistent nausea and vomiting. Patient has been unable to take her pain medication as well. Patient reports she has been having some epigastric abdominal pain but denies any pain at this time. Patient does report that her chronic back pain is poorly controlled. <Chip Villalta MD - Last Filed: 11/16/22 18:54> Related Data Home medications: Home Medications Medication Instructions Recorded Confirmed polyethylene glycol 3350 17 gram 17 g PO DAILY 10/09/22 11/16/22 oral powder packet (Miralax) acetaminophen 500 mg capsule 1,000 mg PO Q8H 11/16/22 11/16/22 cholecalciferol (vitamin D3) 125 5,000 unit PO DAILY 11/16/22 11/16/22 mcg (5,000 unit) tablet (Vitamin D3) enoxaparin 40 mg/0.4 mL 40 mg subcut DAILY 11/16/22 11/16/22 subcutaneous syringe (Lovenox) ergocalciferol (vitamin D2) 1,250 See Rx Instructions .Route .COMPLEX 11/16/22 11/16/22 mcg (50,000 unit) capsule gabapentin 300 mg capsule See Rx Instructions .Route .COMPLEX 11/16/22 11/16/22 oxycodone 5 mg tablet See Rx Instructions .Route .COMPLEX 11/16/22 11/16/22 sennosides 8.6 mg-docusate sodium 1 tablet PO DAILY PRN Constipation 11/16/22 11/16/22 50 mg tablet (Stimulant Laxative Plus) <Chip Villalta MD - Last Filed: 11/16/22 18:54> Allergies/adverse reactions: Allergies Allergy/AdvReac Type Severity Reaction Status Date / Time No Known Allergies Allergy Verified 11/14/22 15:31 <Chip Villalta MD - Last Filed: 11/16/22 18:54> Review of Systems Review of Systems: CONSTITUTIONAL: Denies fever, chills, or sweats. EYES: Denies visual changes, redness, or discharge. ENT: Denies rhinorrhea, congestion, sore throat, or otalgia. CARDIOVASCULAR: Denies chest pain, palpitations, or edema. RESPIRATORY: Denies cough or dyspnea. GASTROINTESTINAL: See HPI GENITOURINARY: Denies dysuria or hematuria. SKIN: Denies rash or itching. MUSCULOSKELETAL: Denies back pain, joint pain, or myalgia. NEUROLOGIC: Denies headache, numbness, or weakness. PSYCHIATRIC: Denies anxiety or depression. <Chip Villalta MD - Last Filed: 11/16/22 18:54> [facility] Past Medical History Medical History: Medical History Metastatic breast cancer <Chip Villalta MD - Last Filed: 11/16/22 18:54> Surgical History Surgical History: Surgical History History of back surgery She has a cage around T10 Previous section 2 <Chip Villalta MD - Last Filed: 11/16/22 18:54> Family History Family History: Family History Father Cancer Skin cancer Mother Cancer Breast cancer <Chip Villalta MD - Last Filed: 11/16/22 18:54> Social History Social History: Social History (Updated 11/16/22 @ 16:53 by Tanya Godoy NP) Social History: She is and has 2 children. She is retired. Lifelong nonsmoker. Code status full code Smoking status: Never smoker Second hand tobacco smoke exposure: No Alcohol intake: former Alcohol use details: Rarely Substance use: never Substance use type: does not use Lack of Transportation: No Lack of Food: Never True
[2022-11-15] MEDS: SODIUM CHLORIDE 0.9% IV 1,000 ML 999 ML IV CONT (23:45)
[2022-11-15] MEDS: ONDANSETRON INJ 4 MG/2 ML VIAL IV PUSH (23:47)
[2022-11-15] MEDS: HYDROmorphone HCL INJ (*CRX) 1 MG/ML SYR IV PUSH (23:55)
[2022-11-15 23:56] LABS: Basophils Percent Auto 0.2 % (0.2-1.2); Eosinophils Percent Auto 0.2 % (0-4.4); Hematocrit 31.7 % (37.0-47.0); Hemoglobin 10.2 g/dL (12.0-15.0); Immature Granulocyte Absolute 0.02 K/mm3 (0.00-0.031); Immature Granulocyte Percent A 0.4 % (0-0.5); Lymphocytes Absolute Auto 0.52 K/mm3 (0.9-3.2); Lymphocytes Percent Auto 10.8 % (18.3-44.2); Mean Corpuscular HGB Conc 32.2 g/dl (32-36); Mean Corpuscular Hemoglobin 28.3 pg (26-34); Mean Corpuscular Volume 88.1 fl (80-100); Mean Platelet Volume 9.5 fl (7.4-10.4); Monocytes Absolute Auto 0.3 K/mm3 (0.1-0.6); Monocytes Percent Auto 7.1 % (2.6-8.5); Neutrophils Absolute Auto 3.9 K/mm3 (1.3-6.7); Neutrophils Percent Auto 81.3 % (45.5-73.1); Platelet Count Result 498 k/mm3 (150-375); Red Cell Distribution Width 13.2 % (11.5-14.5); White Blood Count 4.8 K/mm3 (4.5-10.0)
[2022-11-15 23:59] LABS: Appearance Urine Cloudy (Clear); Bilirubin Urine 2+ (Negative); Blood Urine 3+ (Negative); Color Urine Yellow (Yellow); Glucose Urine UA Negative (Negative); Ketones Urine 4+ mg/dL (Negative); Leukocyte Esterase Ur Negative LEU/UL (Negative); Nitrate Urine Negative (Negative); Protein Urine 2+ mg/dL (Negative); Specific Grav Ur >= 1.030 (1.001-1.035)
[2022-11-16] VITALS (9 sets, daily range): BP systolic 117–178; BP diastolic 65–89; PULSE 78–92; RESP 14–24; TEMP 37.2–37.3; O2SAT 94–99
[2022-11-16 00:06] LABS: Mucus Urine Heavy /lpf; RBC Urine >75 /hpf (0-2); WBC Urine 51-75 /hpf
[2022-11-16 00:08] LABS: Add Urine Microscopic? YES
[2022-11-16 00:16] LABS: Alanine Aminotransferase 17 U/L (6-35); Albumin Level 3.6 g/dL (3.5-5.1); Alkaline Phosphatase 114 U/L (38-126); Anion Gap 12 mmol/L (8-16); Aspartate Amino Transferase 29 U/L (14-36); Bilirubin,Total 0.6 mg/dL (0.2-1.3); Blood Urea Nitrogen 12 mg/dL (7-17); Calcium 8.7 mg/dL (8.4-10.2); Carbon Dioxide 27 mmol/L (22-30); Chloride 97 mmol/L (98-107); Estimated CRCL calculation 102 ml/min; Estimated Glomerular Filt Rate > 60; Glucose 110 mg/dL (65-110); Lipase 40 U/L (23-300); Potassium 3.7 mmol/L (3.4-5.0); Sodium 136 mmol/L (137-145)
[2022-11-16] MEDS: METOCLOPRAMIDE HCL INJ 10 MG/2 ML VIAL IV PUSH ×2 (00:33→06:09)
--- NOTE | 2022-11-16 01:28 | PC.NURSE ---
Daughter reports pt's chronic saucedo was changed one week ago. Per verbal order from Dr. Villalta, saucedo has been changed at this time. 16Fr saucedo inserted and balloon filled with 10cc sterile saline. Pt tolerated procedure well.
[2022-11-16] MEDS: SODIUM CHLORIDE 0.9% IV 1,000 ML 999 ML IV CONT (01:46)
[2022-11-16] MEDS: ONDANSETRON INJ 4 MG/2 ML VIAL IV PUSH ×3 (01:47→21:30)
--- NOTE | 2022-11-16 02:42 | PC.NURSE ---
Pt tolerated drinking water without vomiting. She endorses mild nausea but asks to try rima cracker. Crackers given to pt at this time.
[2022-11-16 04:15] LABS: Influenza A QL RT-PCR Negative (Negative); Influenza B QL RT-PCR Negative (Negative); SARS-CoV-2 RNA PCR Negative
--- NOTE | 2022-11-16 06:03 | PC.NURSE ---
Pt was incontinent of stool. Sakina care and catheter care performed. Skin cleansed, linens changed, and pt repositioned. Air freshener tower placed in room. Stool specimen obtained.
--- NOTE | 2022-11-16 06:57 | PC.NURSE ---
Nurse report given to Karely CHAHAL
[2022-11-16 07:11] LABS: Toxigenic C. Diff NEGATIVE (NEGATIVE)
--- NOTE | 2022-11-16 07:31 | ECG_ITS ---
Measurements Intervals [place] Rate: 87 P: 25 CA: 156 QRS: 5 QRSD: 89 T: 30 QT: 374 QTc: 450 Interpretive Statements SINUS RHYTHM NORMAL ECG NO PREVIOUS ECG AVAILABLE FOR COMPARISON Electronically Signed On 11-16-2022 12:48:13 SWITCHGEAR REPAIRER by Thang Prabhakar M.D.
[2022-11-16] MEDS: HALOPERIDOL LACTATE 5 MG/ML VIAL 2.5 MG IV PUSH (08:07)
--- NOTE | 2022-11-16 09:50 | ADMGEN ---
This patient, Negar Cline, was admitted to 2 Medical Room 260-01. Patient/family oriented to hospital policies and general routines including ID bracelet, bed and alarms, visiting hours, pain management, procedures, bathroom and other care routines, personal items, smoking policy, room service/diet, and visiting hours. Information on how to activate the Rapid Response Team has been discussed. Patient/Family are encouraged to report perceived risks to care and to ask questions if they do not understand what they are told or what they should do.
[2022-11-16] MEDS: LACTATED RINGERS 1,000 ML 125 ML IV CONT ×3 (11:45→20:00)
--- NOTE | 2022-11-16 13:06 | PM.IMHP ---
H&P: HPI History of Present Illness Date/Time: 11/16/22 13:06 Chief Complaint: Nausea vomiting diarrhea Narrative: This is a 62-year-old female patient who has a history of metastatic breast cancer. The patient stated she is undergoing hormone treatment and radiation. That was started this past week. However since this morning she has had decreased oral intake and has had persistent nausea vomiting. She is unable to take her pain medications if she cannot keep down her pain medications. She denied any fever chills. Her H&H is 10.2 and 31.7. Sodium slightly low at 136. Patient has blood in her urine and ketones. No leukocyte bony. She has 51-75 wbc's in her urine she was started on Rocephin. She is negative for C diff and negative for influenza A/B and COVID. CT scan was read as the following. No CT correlate for the patient's symptoms. 2. Moderate-sized left and small right pleural effusions. 3. Nodules in the visualized lung bases, likely metastatic disease. 4. Cholelithiasis without evidence of cholecystitis. She was started on IV fluid, Haldol, Reglan and Zofran. The patient is being admitted to observation status on the date of service of 11/16/2022 Review of Systems Review of Systems: See HPI All systems reviewed & are unremarkable except as noted in HPI and below Constitutional: Constitutional: Reports as per HPI and Reports no additional constitutional complaints Eyes: Eyes: Reports as per HPI and Reports no additional eye complaints ENT: Reports system reviewed and no additional complaints, except as documented and Reports Normal hearing present Cardiovascular: Cardiovascular: Reports no additional cardiovascular complaints Respiratory: Respiratory: Reports no additional respiratory complaints and Reports no additional respiratory complaints Gastrointestinal: Gastrointestinal: Reports as per HPI and Reports no additional gastrointestinal complaints Musculoskeletal: Musculoskeletal: Reports no additional musculoskeletal complaints Integumentary/Breasts: Skin/Breast: Reports system reviewed and no additional complaints, except as docu and Reports as per HPI Neurologic: Reports system reviewed and no additional complaints, except as documented, Reports as per HPI and Reports Normal hearing present Psychiatric: Psychiatric: Reports no additional psychiatric complaints and Reports as per HPI Endocrine: Endocrine: Reports no additional endocrine complaints Hematologic/Lymphatic: Hematologic/Lymphatic: Reports no additional hematologic/lymphatic complaints Allergic/Immunologic: Allergic/Immunologic: Reports no additional allergic/immunologic complaints [facility] Past Medical History Medical History Metastatic breast cancer Surgical History Surgical History History of back surgery She has a cage around T10 Previous section 2 Family History Family History Father Cancer Skin cancer Mother Cancer Breast cancer Social History Social History (Updated 11/16/22 @ 16:53 by Tanya Godoy NP) Social History: She is and has 2 children. She is retired. Lifelong nonsmoker. Code status full code Smoking status: Never smoker Second hand tobacco smoke exposure: No Alcohol intake: former Alcohol use details: Rarely Substance use: never Substance use type: does not use Lack of Transportation: No Lack of Food: Never True Current Housing: I Have Housing Concerned About Future Housing: No Difficulty Paying Gas/Electric Bills: No Difficulty Paying for Meds: No Currently Unemployed: No Education: High School Diploma/GED Difficulty w/ Childcare or Family Care: No Living arrangements: with family Occupation/Education: unemployed Gender identity (if verbalized by the patient): Fe
[2022-11-16] MEDS: ENOXAPARIN 40 MG/0.4 ML SYRINGE SUB-Q (17:38)
[2022-11-16] MEDS: SILVERGEL (ELTA) 45 ML 1 APPLIC TOPICAL (17:59)
[2022-11-17] MEDS: LACTATED RINGERS 1,000 ML 125 ML IV CONT ×3 (04:18→23:13)
[2022-11-17] MEDS: ONDANSETRON INJ 4 MG/2 ML VIAL IV PUSH ×3 (04:18→17:56)
--- NOTE | 2022-11-17 04:31 | PC.NURSE ---
Pt weak, eyes covered with cold washcloth this shift. Flat affect, little communication. Nausea, emesis this shift zofran given x2 Encouraged pt to call for assist
[2022-11-17 06:00] VITALS: BP 146/66; PULSE 85; RESP 14; TEMP 37.2; O2SAT 97
[2022-11-17 06:14] LABS: Basophils Percent Auto 0.2 % (0.2-1.2); Hematocrit 27.3 % (37.0-47.0); Immature Granulocyte Absolute 0.01 K/mm3 (0.00-0.031); Immature Granulocyte Percent A 0.2 % (0-0.5); Lymphocytes Absolute Auto 0.43 K/mm3 (0.9-3.2); Lymphocytes Percent Auto 8.6 % (18.3-44.2); Mean Corpuscular Hemoglobin 28.2 pg (26-34); Mean Corpuscular Volume 85.6 fl (80-100); Mean Platelet Volume 9.7 fl (7.4-10.4); Monocytes Absolute Auto 0.5 K/mm3 (0.1-0.6); Monocytes Percent Auto 9.2 % (2.6-8.5); Neutrophils Absolute Auto 4.1 K/mm3 (1.3-6.7); Neutrophils Percent Auto 81.8 % (45.5-73.1); Platelet Count Result 459 k/mm3 (150-375); Red Blood Count 3.19 M/mm3 (4.2-5.4); Red Cell Distribution Width 12.9 % (11.5-14.5)
[2022-11-17 06:24] LABS: Lactic Acid Reflex 0.8 mmol/L (0.7-2.0)
[2022-11-17 06:28] LABS: Alanine Aminotransferase 14 U/L (6-35); Albumin Level 3.2 g/dL (3.5-5.1); Alkaline Phosphatase 89 U/L (38-126); Anion Gap 10 mmol/L (8-16); Aspartate Amino Transferase 22 U/L (14-36); Bilirubin,Total 0.5 mg/dL (0.2-1.3); Blood Urea Nitrogen 7 mg/dL (7-17); Carbon Dioxide 27 mmol/L (22-30); Chloride 95 mmol/L (98-107); Estimated CRCL calculation 102 ml/min; Estimated Glomerular Filt Rate > 60; Glucose 104 mg/dL (65-110); Magnesium 1.4 mg/dL (1.6-2.3); Sodium 132 mmol/L (137-145)
[2022-11-17 06:48] LABS: Potassium 2.5 mmol/L (3.4-5.0)
[2022-11-17 07:42] LABS: Thyroid Stimulating Hormone Reflex 0.642 uIU/mL (0.465-4.68)
[2022-11-17] MEDS: POTASSIUM CHLORIDE INJ 40 MEQ in SODIUM CHLORIDE 0.9% IV 500 ML 130 MEQ IVPB (08:24)
[2022-11-17] MEDS: POTASSIUM CHLORIDE 20 MEQ TABLET 40 MEQ PO (08:25)
[2022-11-17] MEDS: SILVERGEL (ELTA) 45 ML 1 APPLIC TOPICAL (08:32)
[2022-11-17 08:53] LABS: Iron 37 ug/dL (37-170)
[2022-11-17 09:02] LABS: Percent Iron Saturation 16 % (20-50)
[2022-11-17 10:56] VITALS: O2SAT 94
--- NOTE | 2022-11-17 12:38 | PM.IMPN ---
Progress Note: A&P Assessment and Plan (1) Nausea & vomiting: Code(s): R11.2 - Nausea with vomiting, unspecified Status: Acute (2) Diarrhea: Code(s): R19.7 - Diarrhea, unspecified Status: Acute Plan Nausea & vomiting/Diarrhea -CT scan had no correlation for patient's symptoms. likely from chemotherapy noted improvement except this mornign when she was given potassium tablet whcih she vomited Otherwise noted diarrhea has resolved gentle rehydration (2) Urinary tract infection associated with catheterization of urinary tract UA positive for WBC with negative leukocyte esterase and nitrite On Rocephin, f/u urine culture (3) Breast cancer metastasized to bone: on chemo/radiation, just started chemotherapy last week continue outpatient f/u Quality VTE Prophylaxis VTE prophylaxis: On Sq Lovenox Subjective Date/time seen: 11/17/22 12:38 Review of Systems Review of Systems: All systems reviewed & are unremarkable except as noted in HPI and below Exam Narrative: General:? well-nourished, well-appearing 62-year-old female,? sitting up in bed, comfortable while not moving, NARD Neuro: awake, alert and oriented x4, speech clear, no focal neuro deficits noted HEENMT:? normocephalic, atraumatic, EOMI, sclerae anicteric, moist oral mucosa Respiratory:? Clear to auscultation bilaterally without crackles, rhonchi or wheezes, nonlabored breathing Cardio: regular rate, regular rhythm with S1-S2 Abdomen:? nondistended, normoactive bowel sounds, soft, nontender to palpation Extremities: no edema, erythema, or tenderness to palpation, DP pulses 2+ bilaterally Skin: Lesion crater like in the right breast bleeding, and fairly deep with displaced nipple Psych: appropriate mood and affect, judgment and insight intact Objective Data Vital Signs Vital Signs: Vital Signs - 24 hr 11/16/22 15:00 11/16/22 22:00 11/17/22 06:00 Temperature 99.2 F 99 F 98.9 F Pulse Rate 85 84 85 Respiratory Rate 24 H 14 14 Blood Pressure 164/68 H 156/65 H 146/66 H Pulse Oximetry 99 97 97 Oxygen Delivery 11/17/22 10:56 Temperature Pulse Rate Respiratory Rate Blood Pressure Pulse Oximetry 94 Oxygen Delivery Room Air Intake/Output Intake/Output: Intake & Output 11/14/22 11/15/22 11/16/22 11/17/22 23:59 23:59 23:59 23:59 Intake Total 4150 2840 Output Total 2350 Balance 1800 2840 Meds/Results Medications: Active Medications Generic Name Dose Route Start Last Admin Trade Name Freq PRN Reason Stop Dose Admin Bisacodyl 10 mg 11/16/22 16:55 Bisacodyl 10 Mg Suppository RECTAL QAM PRN Constipation >48 hours Diphenhydramine HCl 25 mg 11/16/22 17:06 Diphenhydramine Hcl Inj 50 Mg/Ml Vial IV PUSH Q4H PRN Itching Enoxaparin Sodium 40 mg 11/17/22 17:00 Enoxaparin 40 Mg/0.4 Ml Syringe SUB-Q DAILY@1700 JANES Lactated Ringer's 1,000 mls @ 125 mls/hr 11/16/22 08:00 11/17/22 04:18 Lr - Lactated Ringers Iv IV CONT 125 mls/hr .Q8H JANES Administration Ceftriaxone Sodium/Dextrose 1 gm in 50 mls @ 100 mls/hr 11/17/22 00:00 11/17/22 01:50 Rocephin 1 Gm/D5w 50 Ml IVPB 100 mls/hr Q24H JANES Infusion Acetaminophen 1,000 mg in 100 mls @ 400 mls/hr 11/16/22 16:59 11/17/22 06:19 Ofirmev 1,000 Mg Ivpb IVPB 11/17/22 16:58 Infused Q6H PRN Infusion Pain Rated 4-6 Lorazepam 1 mg 11/16/22 16:58 Lorazepam Inj (*Crx) 2 Mg/Ml Vial IV PUSH Q6H PRN Anxiety Morphine Sulfate 4 mg 11/16/22 07:59 Morphine Sulfate (*Crx) 4 Mg/Ml Inj IV PUSH Q2H PRN Pain Rated 7-10 Ondansetron HCl 4 mg 11/16/22 15:03 11/17/22 12:31 Ondansetron Inj 4 Mg/2 Ml Vial IV PUSH 4 mg Q4H PRN Administration Nausea And Vomiting Silver Nitrate 1 applic 11/16/22 17:38 11/17/22 08:32 Silvergel (Elta) 45 Ml TOPICAL 1 applic DAILY JANES Administration Radiology Results: ITS Impressions Abdomen/Pelv
[2022-11-17] MEDS: HEPARIN SOD/D5W 100 UNITS/ML 25,000 UNITS/250 ML BAG 12 UNITS IV CONT (16:08)
[2022-11-17] MEDS: HEPARIN SODIUM 5,000 UNITS/ML VIAL 5500 UNITS IV PUSH (16:09)
[2022-11-17 16:39] VITALS: BP 173/77; PULSE 77; RESP 20; TEMP 36.9; O2SAT 100
[2022-11-17 17:30] LABS: Basophils Percent Auto 0.2 % (0.2-1.2); Hematocrit 30.9 % (37.0-47.0); Hemoglobin 10.2 g/dL (12.0-15.0); Immature Granulocyte Absolute 0.03 K/mm3 (0.00-0.031); Immature Granulocyte Percent A 0.5 % (0-0.5); Lymphocytes Absolute Auto 0.49 K/mm3 (0.9-3.2); Lymphocytes Percent Auto 8.7 % (18.3-44.2); Mean Corpuscular Hemoglobin 28.5 pg (26-34); Mean Corpuscular Volume 86.3 fl (80-100); Mean Platelet Volume 9.6 fl (7.4-10.4); Monocytes Absolute Auto 0.6 K/mm3 (0.1-0.6); Monocytes Percent Auto 10.7 % (2.6-8.5); Neutrophils Absolute Auto 4.5 K/mm3 (1.3-6.7); Neutrophils Percent Auto 79.9 % (45.5-73.1); Platelet Count Result 530 k/mm3 (150-375); Red Blood Count 3.58 M/mm3 (4.2-5.4); Red Cell Distribution Width 13.1 % (11.5-14.5); White Blood Count 5.6 K/mm3 (4.5-10.0)
[2022-11-17 17:42] LABS: INR 1.4; Prothrombin Time 16.6 Seconds (11.1-14.7)
[2022-11-17 18:10] LABS: Partial Thromboplastin Time > 200.0 SECONDS (22.3-36.8)
[2022-11-17 21:38] VITALS: BP 158/68; PULSE 84; RESP 16; TEMP 37.6; O2SAT 95
[2022-11-18] MEDS: LORazepam INJ (*CRX) 2 MG/ML VIAL 1 MG IV PUSH (01:02)
[2022-11-18] MEDS: ONDANSETRON INJ 4 MG/2 ML VIAL IV PUSH ×2 (01:02→20:35)
[2022-11-18 01:29] LABS: Partial Thromboplastin Time 33.2 SECONDS (22.3-36.8)
[2022-11-18] MEDS: HEPARIN SODIUM 5,000 UNITS/ML VIAL 5500 UNITS IV PUSH (01:47)
[2022-11-18 06:00] VITALS: BP 166/74; PULSE 80; RESP 12; TEMP 37.2; O2SAT 96
[2022-11-18] MEDS: ACETAMINOPHEN 325 MG TABLET 650 MG PO ×2 (06:56→15:31)
[2022-11-18] MEDS: LACTATED RINGERS 1,000 ML 125 ML IV CONT (06:56)
[2022-11-18 08:52] LABS: Basophils Percent Auto 0.2 % (0.2-1.2); Eosinophils Percent Auto 0.2 % (0-4.4); Hematocrit 29.1 % (37.0-47.0); Hemoglobin 9.6 g/dL (12.0-15.0); Immature Granulocyte Absolute 0.04 K/mm3 (0.00-0.031); Immature Granulocyte Percent A 0.7 % (0-0.5); Lymphocytes Percent Auto 11.4 % (18.3-44.2); Mean Corpuscular Hemoglobin 28.6 pg (26-34); Mean Corpuscular Volume 86.6 fl (80-100); Monocytes Absolute Auto 0.8 K/mm3 (0.1-0.6); Monocytes Percent Auto 12.9 % (2.6-8.5); Neutrophils Absolute Auto 4.6 K/mm3 (1.3-6.7); Neutrophils Percent Auto 74.6 % (45.5-73.1); Platelet Count Result 460 k/mm3 (150-375); Red Blood Count 3.36 M/mm3 (4.2-5.4); Red Cell Distribution Width 13.2 % (11.5-14.5); White Blood Count 6.1 K/mm3 (4.5-10.0)
[2022-11-18 09:05] LABS: Partial Thromboplastin Time 62.6 SECONDS (22.3-36.8)
[2022-11-18] MEDS: POTASSIUM CHLORIDE INJ 40 MEQ in SODIUM CHLORIDE 0.9% IV 500 ML 130 MEQ IVPB (09:10)
[2022-11-18] MEDS: SILVERGEL (ELTA) 45 ML 1 APPLIC TOPICAL (09:12)
[2022-11-18] MEDS: HEPARIN SODIUM 5,000 UNITS/ML VIAL 2500 UNITS IV PUSH (09:18)
[2022-11-18 09:52] LABS: Potassium 2.5 mmol/L (3.4-5.0)
[2022-11-18] MEDS: TIZANIDINE HCL 2 MG TABLET PO (11:14)
--- NOTE | 2022-11-18 12:23 | PM.IMPN ---
Progress Note: A&P Assessment and Plan (1) Nausea & vomiting: Code(s): R11.2 - Nausea with vomiting, unspecified Status: Acute (2) Diarrhea: Code(s): R19.7 - Diarrhea, unspecified Status: Acute Plan Nausea & vomiting/Diarrhea -CT scan had no correlation for patient's symptoms. likely from chemotherapy continue antiemetics (2) Urinary tract infection associated with catheterization of urinary tract UA positive for WBC with negative leukocyte esterase and nitrite On Rocephin, f/u urine culture (3) Breast cancer metastasized to bone: on chemo/radiation, just started chemotherapy last week continue outpatient f/u 4. Hypokalaemia potassium is 2.5 today pt to have potassium rider and potassium supplementation follow BMP 5. deconditioned state KARELY saucedo PT/ OT Quality VTE Prophylaxis VTE prophylaxis: On Sq Lovenox Subjective Date/time seen: 11/18/22 12:23 62-year-old female patient who has a history of metastatic breast cancer.? The patient stated she is undergoing hormone treatment and radiation.? That was started this past week.? However since this morning she has had decreased oral intake and has had persistent nausea vomiting.? She is unable to take her pain medications if she cannot keep down her pain medications.? She denied any fever chills.? Her H&H is 10.2 and 31.7.? Sodium slightly low at 136.? Patient has blood in her urine and ketones.? No? leukocyte bony.? She has 51-75 wbc's in her urine she was started on Rocephin.? She is negative for C diff and negative for influenza A/B? and COVID.? CT scan was read as the following. No CT correlate for the patient's symptoms. 2. Moderate-sized left and small right pleural effusions. 3. Nodules in the visualized lung bases, likely metastatic disease. 4. Cholelithiasis without evidence of cholecystitis. She was started on IV fluid, Haldol, Reglan and Zofran. Pt found to have a DVT started on heparin can transition to oral AC. Pt nausea and vomiting are better potassium still remains very low. Pt requesting discharge tomorrow early as she goes to radiation therapy for her breast cancer Review of Systems Review of Systems: Mild nausea Not vomiting or diarrhea All systems reviewed & are unremarkable except as noted in HPI and below Exam Narrative: General:? Tired fatigued HEENMT:? Normocephalic Respiratory:? Clear to auscultation bilaterally without crackles, rhonchi or wheezes, nonlabored breathing Cardio: regular rate, regular rhythm with S1-S2 Abdomen:? nondistended, normoactive bowel sounds, soft, nontender to palpation Extremities: no edema, erythema, or tenderness to palpation, DP pulses 2+ bilaterally Skin: Lesion crater like in the right breast bleeding, and fairly deep with displaced nipple Psych: appropriate mood and affect, judgment and insight intact Const: General: cooperative, healthy appearing, comfortable, no acute distress, well developed, alert, awake, Physically active, average body habitus and well nourished Chest: Chest palpation & inspection: normal inspection of the chest Resp: Effort & Inspection: normal respiratory effort Auscultation: clear to auscultation bilaterally Cardio: Palpation: normal PMI Rate: regular rate Rhythm: regular rhythm Heart sounds: S1 normal heart sound present and S2 normal heart sound present Peripheral pulses: Peripheral pulses 2+ throughout GI: Inspection: normal to inspection Auscultation: normal bowel sounds Rectal Exam: deferred Neuro: General: oriented to person, oriented to place, oriented to time and patient oriented x3 Cranial nerves: Yes Equal, round and reactive pupils present and Yes Normal hearing present Cognition (Neuro): normal cognition Speech: normal speech Sensory Exam: normal sensation Other: The patient has had limited movement to her right leg every since her back surgery. The surgeons are aware and the patient is requesting physical therapy.
[2022-11-18 14:00] VITALS: BP 140/66; PULSE 67; RESP 14; TEMP 36.9; O2SAT 98
[2022-11-18 14:36] VITALS: BMI 30.4
[2022-11-18] MEDS: POTASSIUM CHLORIDE 20 MEQ PACKET (FOR LIQUID) 40 MEQ PO (17:34)
[2022-11-18] MEDS: APIXABAN 5 MG TABLET 10 MG PO (21:26)
[2022-11-18 21:39] VITALS: BP 161/69; PULSE 75; RESP 18; TEMP 36.8; O2SAT 97
[2022-11-19] MEDS: LORazepam INJ (*CRX) 2 MG/ML VIAL 1 MG IV PUSH (00:30)
[2022-11-19] MEDS: TIZANIDINE HCL 2 MG TABLET PO ×2 (03:31→09:23)
[2022-11-19 05:23] VITALS: BP 115/56; PULSE 61; RESP 18; TEMP 36.8; O2SAT 98
[2022-11-19 07:25] LABS: Anion Gap 2 mmol/L (8-16); Blood Urea Nitrogen 8 mg/dL (7-17); Calcium 7.4 mg/dL (8.4-10.2); Carbon Dioxide 34 mmol/L (22-30); Chloride 91 mmol/L (98-107); Estimated CRCL calculation 86 ml/min; Estimated Glomerular Filt Rate > 60; Glucose 102 mg/dL (65-110); Potassium 3.4 mmol/L (3.4-5.0); Sodium 127 mmol/L (137-145)
[2022-11-19] MEDS: APIXABAN 5 MG TABLET 10 MG PO (09:24)
[2022-11-19] MEDS: SILVERGEL (ELTA) 45 ML 1 APPLIC TOPICAL (09:25)
--- NOTE | 2022-11-19 10:00 | PM.DS ---
DS: Admitting Diagnosis Discharge Date 11/20/2022 Admitting Diagnosis Nausea vomiting diarrhea DS: Discharge Diagnosis Discharge Diagnosis (1) Nausea & vomiting: Code(s): R11.2 - Nausea with vomiting, unspecified Status: Acute (2) Diarrhea: Code(s): R19.7 - Diarrhea, unspecified Status: Acute Plan 1.DVT Pt started on heparin drip in the hospital Transitioned to Eliquis 10 mg po bid for 7 days and then 5mg po bid pt to follow withe pcp 2. Nausea & vomiting/Diarrhea -CT scan had no correlation for patient's symptoms. likely from chemotherapy continue antiemetics (2) Urinary tract infection associated with catheterization of urinary tract UA positive for WBC with negative leukocyte esterase and nitrite On Rocephin iv, urine culture negative to date, pt can be dc without any ABX some complaints of abdominal pains on DC, discharged with protonix orally (3) Breast cancer metastasized to bone: on chemo/radiation, just started chemotherapy last week continue outpatient f/u pt having radiation theraphy this week 4. Hypokalaemia potassium is 2.5 today pt to have potassium rider and potassium supplementation potassium corrected today 5. deconditioned state PT/ OT in hospital Pt wanting to discharge Although she remains weak Pt discharging with Home health services DS: Summary Hospital Course Hospital Course: 62-year-old female patient who has a history of metastatic breast cancer.? The patient stated she is undergoing hormone treatment and radiation.? That was started this past week.? However since this morning she has had decreased oral intake and has had persistent nausea vomiting.? She is unable to take her pain medications if she cannot keep down her pain medications.? She denied any fever chills.? Her H&H is 10.2 and 31.7.? Sodium slightly low at 136.? Patient has blood in her urine and ketones.? No? leukocyte bony.? She has 51-75 wbc's in her urine she was started on Rocephin.? She is negative for C diff and negative for influenza A/B? and COVID.? CT scan was read as the following. No CT correlate for the patient's symptoms. 2. Moderate-sized left and small right pleural effusions. 3. Nodules in the visualized lung bases, likely metastatic disease. 4. Cholelithiasis without evidence of cholecystitis. She was started on IV fluid, Haldol, Reglan and Zofran. Pt found to have a DVT started on heparin can transition to oral AC. Pt nausea and vomiting are better potassium was low but this has been corrected Pt requesting discharge tomorrow early as she goes to radiation therapy for her breast cancer Time Spent with Patient Time attestation: Total time spent providing and/or coordinating discharge services:40 minutes on day of dc Exam Narrative: General:? Tired fatigued HEENMT:? Normocephalic Respiratory:? Clear to auscultation bilaterally without crackles, rhonchi or wheezes, nonlabored breathing Cardio: regular rate, regular rhythm with S1-S2 Abdomen:? nondistended, normoactive bowel sounds, soft, nontender to palpation Extremities: no edema, erythema, or tenderness to palpation, DP pulses 2+ bilaterally Skin: Lesion crater like in the right breast bleeding, and fairly deep with displaced nipple Psych: appropriate mood and affect, judgment and insight intact DS: Data Data Completed and Pending Labs on day of discharge: Labs from last 24 hours 11/19/22 07:06 Sodium 127 L Potassium 3.4 Chloride 91 L Carbon Dioxide 34 H Anion Gap 2 L BUN 8 Creatinine 0.60 L Estim Creat Clear Calc 86 Estimated GFR > 60 Glucose 102 Calcium 7.4 L Preliminary micro results at discharge 11/16/22 00:46 Blood Culture - Preliminary Blood 11/16/22 00:46 Blood Culture - Preliminary Blood Discharge Plan Discharge Attending physician on discharge: Karen Lizarraga Discharging Clinician: Karen Lizarraga Patient Disposition: Home Health Service
[2022-11-19] MEDS: ACETAMINOPHEN 325 MG TABLET 650 MG PO (11:21)
--- NOTE | 2022-11-19 13:30 | PC.NURSE ---
11/19/22 Pt in the restroom and complaining of feeling the urge to urinate but not successful of urinating. Explained that I would like to use the bladder scanner to make sure there is no retention. Explained that she might be back in the ER if she is experiencing retention. She refused bladder scan at this time.
== END 2022-11-19 12:50 | disposition home health service (06) | DRG 392 ==
LOC: ANHED 11-16 07:06 → ANH2MED 11-16 09:15
PROVIDERS: Emergency Medicine; Internal Medicine; Nurse Practitioner; Admitting Provider Internal Medicine; Emergency Provider Emergency Medicine; PCP Family Medicine; Visit Provider Family Medicine
DX: R11.2 Nausea with vomiting, unspecified (principal); C79.51 Secondary malignant neoplasm of bone; I82.441 Acute embolism and thrombosis of right tibial vein; T45.1X5A Adverse effect of antineoplastic and immunosuppressive drugs, initial encounter; C50.919 Malignant neoplasm of unspecified site of unspecified female breast; R19.7 Diarrhea, unspecified; E87.6 Hypokalemia; Z20.822 Contact with and (suspected) exposure to COVID-19; Z80.3 Family history of malignant neoplasm of breast; Z80.8 Family history of malignant neoplasm of other organs or systems
CPT/HCPCS: 36415; 51702; 74177; 80048; 80053; 81001; 83540; 83550; 83605; 83690; 83735; 84132; 84443; 85025; 85610; 85730; 87040; 87045; 87086; 87427; 87493; 87636; 89055; 93005; 93970; 96366; 96367; 96375; 96376; 97165; 99285; A9270; G0378; J0131; J0696; J1170; J1630; J1644; J1650; J2060; J2405; J2765; J3480; J7030; J7040; J7120; Q9967